=== PATIENT | male | born 1955 | race Caucasian/White ===

== ENCOUNTER 2019-09-05 08:24 | Outpatient (RCR) | payer OTHER, SELFPAY | END 2019-12-04 23:59 | disposition home or self-care (01) | LOC: CHSAUDIO 08:24 | PROVIDERS: PCP Internal Medicine; Visit Provider Audiologist | DX: H91.90 Unspecified hearing loss, unspecified ear (principal) | CPT/HCPCS: 92557; 92567 ==

== ENCOUNTER 2020-04-29 08:01 | Outpatient (CLI) | payer OTHER, SELFPAY ==
[2020-04-29 08:11] LABS: Basophils Absolute Auto 0.05 K/mm3 (0.00-0.10); Basophils Percent Auto 0.6 % (0.0-1.0); Eosinophils Absolute Auto 0.19 K/mm3 (0.02-0.50); Eosinophils Percent Auto 2.4 % (1.0-6.0); Hemoglobin 14.7 g/dL (12.4-15.3); Immature Granulocyte Absolute 0.01 K/mm3 (0.00-0.00); Immature Granulocyte Percent A 0.1 % (0.0-0.0); Lymphocytes Absolute Auto 2.66 K/mm3 (1.10-4.50); Lymphocytes Percent Auto 33.3 % (18.0-42.0); Mean Platelet Volume 8.9 fl (8.7-11.0); Monocytes Absolute Auto 0.92 K/mm3 (0.10-0.90); Monocytes Percent Auto 11.5 % (2.0-11.0); Neutrophils Absolute Auto 4.2 K/mm3 (1.7-7.2); Neutrophils Percent Auto 52.1 % (50.0-70.0); Platelet Count Result 301 K/mm3 (150-420); Red Blood Count 4.74 M/mm3 (4.70-6.10); Red Cell Distribution Width 12.8 % (11.6-14.4)
[2020-04-29 09:04] LABS: Alanine Aminotransferase 41 U/L (16-63); Albumin Level 4.1 g/dL (3.4-5.0); Alkaline Phosphatase 41 U/L (46-116); Anion Gap 7 mmol/L (8-16); Aspartate Amino Transferase 26 U/L (15-37); Bilirubin,Total 0.9 mg/dL (0.00-1.00); Blood Urea Nitrogen 14 mg/dL (7-18); Calcium 8.9 mg/dL (8.5-10.1); Carbon Dioxide 28 mmol/L (21-32); Chloride 104 mmol/L (98-108); Cholesterol 197 mg/dL (0-200); Estimated Glomerular Filt Rate > 60; Glucose 101 mg/dL (70-99); HDL Direct 67 mg/dL (40-60); LDL Cholesterol Calculated 116 mg/dL (<130); Osmolality Calculated 288 mOsm/kg (285-295); Potassium 4.1 mmol/L (3.5-5.1); Prostate Specific Antigen 1.5 ng/mL (< OR = 4.0); Sodium 139 mmol/L (136-145); Thyroid Stimulating Hormone 1.58 uIU/mL (0.36-3.74); Total Protein 6.9 g/dL (6.4-8.2); Triglycerides 70 mg/dL (0-150)
[2020-04-29 12:53] LABS: Appearance Urine Clear (Clear); Bilirubin Urine Negative (Negative); Color Urine Yellow (Yellow); Glucose Urine UA Negative (Negative); Ketones Urine Negative (Negative); Leukocyte Esterase Ur Negative (Negative); Nitrate Urine Negative (Negative); Protein Urine Negative (Negative); Specific Grav Ur <= 1.005 (1.010-1.020); Urobilinogen Urine 0.2 mg/dL (0.2-1.0)
[2020-04-29 12:58] LABS: Add Urine Microscopic? YES; Bacteria Urine None seen /hpf; Blood Urine Trace (Negative); RBC Urine 0-2 /hpf (0-2); WBC Urine 0-3 /hpf (0-3)
== END 2020-04-29 08:02 | disposition home or self-care (01) ==
LOC: CHSLAB 08:03
PROVIDERS: PCP Internal Medicine; Visit Provider Internal Medicine
DX: Z00.00 Encounter for general adult medical examination without abnormal findings (principal); Z12.5 Encounter for screening for malignant neoplasm of prostate
CPT/HCPCS: 36415; 80053; 80061; 81001; 84153; 84443; 85025; G0103

== ENCOUNTER 2020-09-10 07:11 | Outpatient (CLI) | payer OTHER, SELFPAY ==
--- NOTE | ~2020-09-10 | CT_ITS ---
EXAMINATION: CT abdomen pelvis wo/w con DATE: 09/10/2020 08:28 INDICATION: Microhematuria one week ago. Slight right lower quadrant stinging when bending over. Hist ory of lung cancer. TECHNIQUE: Computed tomography (CT) of the abdomen and pelvis was performed without and subsequently with 130 cc Omnipaque 350 intravenous contrast. Automated exposure control and iterative reconstructi on technique were employed. Exam dose: 2309.52 mGy-cm total exam DLP. COMPARISON: 07/20/2019 CT abdomen pelvis FINDINGS: Mild emphysematous changes are noted. Occasional peripheral small pulmonary nodular densiti es are noted, stable since 07/20/2019. There is stable mild discoid scarring in the lower lung zones. Normal heart size. Coronary artery calcification. No pericardial or pleural effusion. Small sliding hiatal hernia. No hepatic, splenic, pancreatic or adrenal space-occupying mass lesion. The gallbladder is present. N o bile duct or pancreatic duct dilatation. There are multiple pole bilateral scattered renal cysts, measuring up to 12 mm maximal dimension. Aga in noted is prominent focal calcification along the lateral cortex of the mid right kidney measuring up to 9 x 15 mm. No interval suspicious renal mass lesion is noted compared to 07/20/2019. No ureteral calculus or hydroureteronephrosis. There is prostate enlargement and moderate thickening of the urinary bladder wall. There are couple c alcifications along the anterior wall of the urinary bladder. Normal caliber of the abdominal aorta. No intraperitoneal or retroperitoneal or pelvic mass lesion or adenopathy or ascites. Normal appendix. Diverticulosis of the colon; no CT evidence of diverticulitis. No bowel obstruction, bowel wall thick ening, pneumatosis or intraperitoneal free air is detected. Fat-containing right inguinal hernia. Degenerative changes of the thoracic and lumbar spine. These include degenerative change at the apoph yseal joints with grade 1 anterolisthesis at L4-5 and prominent degenerative disc disease and mild re trolisthesis at L5-S1. IMPRESSION: Emphysema Small sliding hiatal hernia Bilateral renal cysts Chronic prominent focal calcification along the lateral mid right renal cortex Prostate enlargement and moderate thickening of the urinary bladder wall Diverticulosis of the colon Reviewed, dictated and finalized at [facility]. Reviewed, dictated and finalized at [facility]. 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
[2020-09-10 07:31] LABS: Estimated Glomerular Filt Rate > 60
== END 2020-09-10 07:12 | disposition home or self-care (01) ==
PROVIDERS: PCP Internal Medicine; Visit Provider Urology
DX: R31.29 Other microscopic hematuria (principal)
CPT/HCPCS: 74178; 87086; 87088; 88112; Q9967

== ENCOUNTER 2020-09-24 08:14 | Outpatient (CLI) | payer OTHER, SELFPAY | END 2020-09-24 08:15 | disposition home or self-care (01) | PROVIDERS: PCP Internal Medicine; Visit Provider Audiologist | DX: H91.90 Unspecified hearing loss, unspecified ear (principal) | CPT/HCPCS: 92557; 92567 ==

== ENCOUNTER 2020-10-15 08:00 | Outpatient (RCR) | payer OTHER, SELFPAY | END 2020-12-23 23:59 | disposition home or self-care (01) | LOC: CHSAUDIO 08:00 | PROVIDERS: PCP Internal Medicine; Visit Provider Audiologist | DX: H91.90 Unspecified hearing loss, unspecified ear (principal) | CPT/HCPCS: V5160; V5260 ==

== ENCOUNTER 2021-05-02 09:38 | Outpatient (CLI) | payer MEDICARE, SELFPAY ==
[2021-05-02 09:50] LABS: Basophils Absolute Auto 0.04 K/mm3 (0.00-0.10); Basophils Percent Auto 0.4 % (0.0-1.0); Eosinophils Absolute Auto 0.32 K/mm3 (0.02-0.50); Eosinophils Percent Auto 3.4 % (1.0-6.0); Hematocrit 47.2 % (37.0-46.0); Hemoglobin 15.2 g/dL (12.4-15.3); Immature Granulocyte Absolute 0.03 K/mm3 (0.00-0.00); Immature Granulocyte Percent A 0.3 % (0.0-0.0); Lymphocytes Absolute Auto 2.27 K/mm3 (1.10-4.50); Lymphocytes Percent Auto 23.9 % (18.0-42.0); Mean Corpuscular HGB Conc 32.2 g/dL (32.0-36.0); Mean Corpuscular Hemoglobin 31.2 pg (27.0-31.0); Mean Corpuscular Volume 96.9 fL (78.0-102.0); Mean Platelet Volume 8.9 fl (8.7-11.0); Monocytes Absolute Auto 1.26 K/mm3 (0.10-0.90); Monocytes Percent Auto 13.3 % (2.0-11.0); Neutrophils Absolute Auto 5.6 K/mm3 (1.7-7.2); Neutrophils Percent Auto 58.7 % (50.0-70.0); Platelet Count Result 299 K/mm3 (150-420); Red Blood Count 4.87 M/mm3 (4.70-6.10); White Blood Count 9.5 K/mm3 (4.8-10.8)
[2021-05-02 10:10] LABS: Add Urine Microscopic? YES; Appearance Urine Clear (Clear); Bilirubin Urine Negative (Negative); Blood Urine 1+ (Negative); Color Urine Light Yellow (Yellow); Glucose Urine UA Negative (Negative); Ketones Urine Negative (Negative); Leukocyte Esterase Ur Negative (Negative); Nitrate Urine Negative (Negative); Protein Urine Negative (Negative); Specific Grav Ur 1.015 (1.010-1.020)
[2021-05-02 10:14] LABS: WBC Urine 0-3 /hpf (0-3)
[2021-05-02 10:15] LABS: Bacteria Urine Trace /hpf; Mucus Urine Few /lpf; Squamous Epithelial Cell Urine None seen /hpf (Few)
[2021-05-02 11:27] LABS: Alanine Aminotransferase 32 U/L (16-63); Albumin Level 3.9 g/dL (3.4-5.0); Alkaline Phosphatase 50 U/L (46-116); Anion Gap 8 mmol/L (8-16); Aspartate Amino Transferase 14 U/L (15-37); Bilirubin,Total 0.7 mg/dL (0.00-1.00); Blood Urea Nitrogen 13 mg/dL (7-18); Calcium 9.2 mg/dL (8.5-10.1); Carbon Dioxide 32 mmol/L (21-32); Chloride 103 mmol/L (98-108); Cholesterol 202 mg/dL (0-200); Estimated Glomerular Filt Rate > 60; Glucose 92 mg/dL (70-99); HDL Direct 70 mg/dL (40-60); LDL Cholesterol Calculated 117 mg/dL (<130); Osmolality Calculated 296 mOsm/kg (285-295); Potassium 4.4 mmol/L (3.5-5.1); Prostate Specific Antigen 1.3 ng/mL (< OR = 4.0); Sodium 143 mmol/L (136-145); Thyroid Stimulating Hormone 1.32 uIU/mL (0.36-3.74); Total Protein 6.8 g/dL (6.4-8.2); Triglycerides 75 mg/dL (0-150)
== END 2021-05-02 09:39 | disposition home or self-care (01) ==
LOC: CHSLAB 09:40
PROVIDERS: PCP Internal Medicine; Visit Provider Internal Medicine
DX: E78.5 Hyperlipidemia, unspecified (principal); I10 Essential (primary) hypertension; Z12.5 Encounter for screening for malignant neoplasm of prostate; Z00.00 Encounter for general adult medical examination without abnormal findings
CPT/HCPCS: 36415; 80053; 80061; 81001; 84153; 84443; 85025; G0103

== ENCOUNTER 2021-05-08 11:23 | Outpatient (CLI) | payer MEDICARE, SELFPAY ==
--- NOTE | 2021-05-08 11:30 | ECG_ITS ---
Measurements Intervals [place] Rate: 73 P: 64 DC: 158 QRS: 6 QRSD: 118 T: 24 QT: 392 QTc: 435 Interpretive Statements SINUS RHYTHM INTRAVENTRICULAR CONDUCTION DELAY DELAYED PRECORDIAL R/S TRANSITION BASELINE ARTIFACT- II, III, AVF BORDERLINE ECG Electronically Signed On 05-08-2021 12:07:05 CDT by Niraj Pablo D.O.
== END 2021-05-08 11:24 | disposition home or self-care (01) ==
PROVIDERS: PCP Internal Medicine; Visit Provider Surgery
DX: Z01.818 Encounter for other preprocedural examination (principal); K40.90 Unilateral inguinal hernia, without obstruction or gangrene, not specified as recurrent; I10 Essential (primary) hypertension
CPT/HCPCS: 36415; 86850; 86900; 86901; 93005

== ENCOUNTER 2021-05-13 02:45 | Day surgery (SDC) | payer MEDICARE, SELFPAY ==
[2021-05-01 11:35] VITALS: BMI 27.5
--- NOTE | 2021-05-12 14:09 | WPDANESEPPF ---
Anes - Initial Pre Proc Eval Procedure: Operation Date: 05/13/21 10:00 Proposed Procedures p Laparoscopic Right Inguinal Hernia Repair with Mesh Davinci Assisted - Yeison Francis DO Date/Time: 05/12/21 14:09 Surgeon: Yeison Francis DO Pre Op Diagnosis: right inguinal hernia Patient Data Age: 66 Gender: M Height: 1.91 m Weight: 99.8 kg Allergies Allergy/AdvReac Type Severity Reaction Status Date / Time No Known Allergies Allergy Verified 05/01/21 11:18 Home Medications Medication Instructions Recorded Confirmed Type aspirin 81 mg PO DAILY 07/20/19 05/01/21 History cholecalciferol (vitamin D3) 2,000 unit PO DAILY 07/20/19 05/01/21 History [Vitamin D3] duloxetine [Cymbalta] 20 mg PO QAM 07/20/19 05/01/21 History finasteride 5 mg PO DAILY 07/20/19 05/01/21 History fluticasone propion-salmeterol 1 puff INHALATION BID 07/20/19 05/01/21 History [Advair HFA] fluticasone propionate [Flonase 2 spray INTRANASAL PRN PRN 07/20/19 05/01/21 History Allergy Relief] ipratropium-albuterol 3 ml INHALATION PRN PRN 07/20/19 05/01/21 History pravastatin 10 mg PO QPM 07/20/19 05/01/21 History spironolactone 25 mg PO DAILY 07/20/19 05/01/21 History trazodone 75 mg PO HS 07/20/19 05/01/21 History albuterol sulfate 2 puff INHALATION PRN PRN 05/01/21 05/01/21 History felodipine [Plendil] 10 mg PO HS 05/01/21 05/01/21 History pantoprazole 40 mg PO QPM 05/01/21 05/01/21 History docusate sodium [Stool Softener] 100 mg PO DAILY 05/04/21 05/04/21 History famotidine [Pepcid] 40 mg PO DAILY 05/04/21 05/04/21 History montelukast 10 mg PO DAILY 05/04/21 05/04/21 History Patient hx anesthesia problems: none Family hx anesthesia problems: none Results Review: All pre-operative results and documents have been reviewed as part of the pre-operative evaluation. [facility] Past Medical History Medical History Asthma BPH (benign prostatic hyperplasia) Depression GERD (gastroesophageal reflux disease) High cholesterol HTN (hypertension) Hx of malignant neoplasm of lung Surgical History Surgical History History of lobectomy of lung Left lower 2007 Family History Family History Father Brain cancer Mother Breast cancer Uterine cancer Cerebrovascular accident Sibling Parkinson disease Social History Social History Smoking packs per day: 2 Smoking cigarettes per day: 40.0 Years smoked: 18 Smoking pack-years: 36.00 Smoking status: Former smoker Tobacco type: cigarettes Smoking end date: 03/08/93 Alcohol intake: current Substance use: never Living arrangements: other Gender identity (if verbalized by the patient): Male Sexual Orientation (if Verbalized by the Patient): Straight or Heterosexual Spiritual care concerns: No Anes - Eval Final PreProcedure Day of Procedure 05/12/21 14:09 Patient weight: overweight Heart: regular rate and rhythm Lungs: clear to auscultation and normal air movement Airway: Mallampati scale class II Neurological: alert and oriented Last oral intake: >/= 8 hours ASA classification: III Emergent: no Anesthetic plan: proceed Anesthesia type and monitoring: general ETT and standard monitoring Results Review: All pre-operative results and documents have been reviewed as part of the pre-operative evaluation. Informed Consent: The patient's anesthetic plan and its attendant risks and benefits were discussed with the patient/family/POA. Questions were solicited and answers provided to the satisfaction of the patient/family/POA.
[2021-05-13] VITALS (10 sets, daily range): BP systolic 127–163; BP diastolic 79–95; PULSE 53–70; RESP 11–16; TEMP 36.1–37.1; O2SAT 96–100
[2021-05-13] MEDS: ACETAMINOPHEN 500 MG TABLET 1000 MG PO (08:32)
[2021-05-13] MEDS: KETOROLAC 15 MG/ML VIAL (*BKC) IV PUSH (08:32)
[2021-05-13] MEDS: LACTATED RINGERS 1,000 ML 30 ML IV CONT ×2 (08:37→10:45)
--- NOTE | 2021-05-13 09:03 | WPDHPUPDATE1 ---
History and Physical Update Update Date/Time: 05/13/21 09:03 History and Physical has been reviewed, including an updated exam of the patient. There are NO changes in the patient's condition. Risks, benefits, and alternatives have been discussed and questions answered. Patient agrees to proceed with procedure.
[2021-05-13] MEDS: ceFAZolin 2 GM/D5W 50 ML 2 GM/50 ML BAG IVPB (09:18)
--- NOTE | 2021-05-13 10:35 | W.PM.PROC2 ---
Procedure Note - Detailed Date of Procedure 05/13/21 Pre-op Diagnosis right inguinal hernia Post-op Diagnosis same (Indirect right inguinal hernia) Procedure Performed Laparoscopic right inguinal hernia repair with mesh, da Jesi assisted Surgeon Yeison Francis DO Anesthesia general and local (0.5% bupivacaine with epinephrine) Indications This is a 66-year-old man who presented with right groin pain with activity for the past month. He has a prior history of a CT which showed evidence of a fat containing right inguinal hernia. At the time this was not causing him many symptoms, but now he is noticing more frequent pain. A reducible right inguinal hernia was identified on physical exam. Discussions were made with the patient about treatment options and decision was made to proceed with laparoscopic right inguinal hernia repair with mesh, de Jesi assisted. Findings Laparoscopic right inguinal hernia repair was performed. The patient was found to have evidence of an indirect right inguinal hernia. A robotic transabdominal preperitoneal approach was utilized. A large right 3DMax mesh was placed within the preperitoneal pocket overlying the entire right myopectineal orifice. No specimens were obtained for pathology. There was no evidence of a left inguinal hernia on laparoscopic inspection. Description of Procedure Procedure as well as risks, benefits, and alternatives were discussed with the patient. Written consent was obtained and placed in chart prior to procedure. Patient was brought back to surgical suite. He was placed supine on operating table. Time-out was done to confirm patient and procedure. He was then intubated by Anesthesia Department. His abdomen was prepped and draped in sterile fashion using chlorhexidine prep. 0.5% bupivacaine with epinephrine was infiltrated at each location for incision. A 12 millimeter transverse incision was made just superior to the umbilicus using a 15 blade scalpel. Blunt dissection was carried out down to the linea alba. A vertical incision was made at the linea alba using a 15 blade scalpel. The peritoneum was then bluntly entered. A 12 millimeter trocar was inserted and carbon dioxide insufflation was used to create a pneumoperitoneum. A camera was inserted and the abdominal cavity was inspected. The patient was placed in slight Trendelenburg position. An 8 millimeter incision was made on the right lateral abdomen and an 8 millimeter trocar was inserted under direct visualization. Another 8 millimeter incision was made in the left lateral abdomen and an 8 millimeter trocar was inserted under direct visualization. The robotic arms were brought up to the patient's bedside and secured to the ports. The camera and instruments were inserted. I then moved over to the robotic console and took control of the camera and instruments. After careful inspection of the abdominal cavity, I began scoring the peritoneum along the right lower quadrant using scissors with electrocautery. The preperitoneal plane was entered and this was carefully dissected caudally along the inferior epigastric vessels. Careful dissection with scissors with electrocautery and blunt dissection was used to continue this dissection. I dissected far enough laterally to allow for mesh placement, and also dissected medially to identify the pubic arch and Garry's ligament. The hernia sac was identified and carefully dissected posteriorly. The cord contents were also identified and the peritoneum was carefully dissected far enough posteriorly to allow for mesh placement. Once an adequate pocket was created, I then placed the mesh within the preperitoneal pocket and carefully unfolded it. The mesh was centered on the hernia defect with adequate overlap circumferentially. The inferior edge of the mesh was inspected to ensure that it was far enough away from the peritoneal edge. The mesh appeared in proper position overlying the entire myop
--- NOTE | 2021-05-13 12:18 | SUR.PHASEII ---
1200 - family member contacted and updated.
== END 2021-05-13 13:50 | disposition home or self-care (01) ==
PROVIDERS: PCP Internal Medicine; Visit Provider Surgery
PROC: 8E0Y4CZ Robotic Assisted Procedure of Lower Extremity, Percutaneous Endoscopic Approach (ICD-10-PCS; CPT 49650; principal; 2021-05-13 10:00)
DX: K40.90 Unilateral inguinal hernia, without obstruction or gangrene, not specified as recurrent (principal); J45.909 Unspecified asthma, uncomplicated; I10 Essential (primary) hypertension; E78.00 Pure hypercholesterolemia, unspecified; K21.9 Gastro-esophageal reflux disease without esophagitis; N40.0 Benign prostatic hyperplasia without lower urinary tract symptoms; F32.9 Major depressive disorder, single episode, unspecified; Z85.118 Personal history of other malignant neoplasm of bronchus and lung; Z90.2 Acquired absence of lung [part of]; Z87.891 Personal history of nicotine dependence; Z79.51 Long term (current) use of inhaled steroids; Z79.82 Long term (current) use of aspirin
CPT/HCPCS: 49650; S2900; A9270; J0690; J1100; J1885; J2250; J2270; J2405; J2704; J7120

== ENCOUNTER 2021-06-08 09:56 | Outpatient (CLI) | payer MEDICARE, SELFPAY ==
[2021-06-08 11:46] LABS: SARS-CoV-2 RNA PCR Negative (Negative)
== END 2021-06-08 09:57 | disposition home or self-care (01) ==
LOC: CHSLAB 10:00
PROVIDERS: PCP Internal Medicine; Visit Provider Internal Medicine
DX: Z20.822 Contact with and (suspected) exposure to COVID-19 (principal)
CPT/HCPCS: C9803; U0003; U0005

== ENCOUNTER 2022-02-16 14:58 | Emergency (ER) | payer MEDICARE, SELFPAY ==
--- NOTE | ~2022-02-16 | CT_ITS ---
EXAMINATION: CT abdomen pelvis wo con DATE: 02/16/2022 16:11 INDICATION: Left-sided flank pain with nausea for 5 days. History of kidney stones. TECHNIQUE: Computed tomography (CT) of the abdomen and pelvis was performed without intravenous contr ast. The dose-length product was 883.10 mGy-cm. Automated exposure control and iterative reconstructi on technique were employed. COMPARISON: CT dated 09/10/2020. FINDINGS: No significant pleural or pericardial effusion. Heart size normal. Small hiatal hernia. Mil d atherosclerosis without aneurysm. No lymphadenopathy. Coarse peripheral calcification along the rig ht lateral margin of the kidney, likely of no clinical significance, most likely related to previous trauma or infection. Punctate nonobstructing bilateral renal stones. No ureteral stones or hydronephr osis. The liver, spleen, pancreas, adrenal glands are unremarkable. Gallbladder is present. Nonobstructive bowel gas pattern. Bladder is decompressed limiting evaluation for wall thickening. Prostate gland is enlarged. No abnormal pelvic masses or fluid collections. No free air or free fluid. Moderate lumbar spondylosis with grade 1 degenerative spondylolisthesis at L4-5. IMPRESSION: 1. Nonobstructing bilateral nephrolithiasis. Reviewed, dictated and finalized at [facility].
[2022-02-16 15:08] VITALS: BP 153/96; PULSE 83; RESP 18; TEMP 36.6; O2SAT 94
--- NOTE | 2022-02-16 15:57 | PC.NURSE ---
urine delivered to lab.
[2022-02-16 15:59] LABS: Add Urine Microscopic? YES; Appearance Urine Clear (Clear); Bilirubin Urine Negative (Negative); Blood Urine 3+ (Negative); Color Urine Yellow (Yellow); Glucose Urine UA Negative (Negative); Ketones Urine Negative (Negative); Leukocyte Esterase Ur Trace (Negative); Nitrate Urine Negative (Negative); Protein Urine Negative (Negative); Urobilinogen Urine 0.2 mg/dL (0.2-1.0)
[2022-02-16] MEDS: ACETAMINOPHEN 325 MG TABLET 650 MG PO (15:59)
[2022-02-16 16:02] LABS: Bacteria Urine 2+ /hpf; RBC Urine 21-50 /hpf (0-2); Squamous Epithelial Cell Urine Rare /hpf (Few); WBC Urine 0-3 /hpf (0-3)
--- NOTE | 2022-02-16 16:30 | ED.BACK ---
HPI - Back Pain/Injury General Chief Complaint: Back Pain/Injury Stated Complaint: lower back pain Time Seen by Provider: 02/16/22 15:02 Source: patient and RN notes reviewed Mode of arrival: ambulatory Limitations: no limitations History of Present Illness MD elicited complaint: back pain Pertinent past history: prior back pain Onset (ago): day(s) (2) Timing: constant and progressively worsening Severity: mild Pain scale (0-10): 5 Similar Symptoms Previously: Yes Quality: dull and aching Location: lumbar spine Radiation: none Exacerbating factors: movement Relieving factors: immobilization and medication Associated symptoms: denies other symptoms, increased urinary urgency and arthralgias Work related injury: No Related Data Home Medications Medication Instructions Recorded Confirmed aspirin 81 mg tablet,delayed 81 mg PO DAILY 07/20/19 05/28/21 release cholecalciferol (vitamin D3) 50 2,000 unit PO DAILY 07/20/19 05/28/21 mcg (2,000 unit) tablet (Vitamin D3) duloxetine 20 mg capsule,delayed 20 mg PO QAM 07/20/19 05/28/21 release (Cymbalta) finasteride 5 mg tablet 5 mg PO DAILY 07/20/19 05/28/21 fluticasone propionate 230 1 puff inhalation BID 07/20/19 05/28/21 mcg-salmeterol 21 mcg/actuation HFA inhaler (Advair HFA) fluticasone propionate 50 2 spray intranasal PRN PRN Allergy 07/20/19 05/28/21 mcg/actuation nasal Symptoms spray,suspension (Flonase Allergy Relief) ipratropium 0.5 mg-albuterol 3 mg 3 ml inhalation PRN PRN SOB 07/20/19 05/28/21 (2.5 mg base)/3 mL nebulization soln pravastatin 10 mg tablet 10 mg PO QPM 07/20/19 05/28/21 spironolactone 25 mg tablet 25 mg PO DAILY 07/20/19 05/28/21 trazodone 150 mg tablet 75 mg PO HS 07/20/19 05/28/21 albuterol sulfate 90 mcg/actuation 2 puff inhalation PRN PRN SOB 05/01/21 05/28/21 aerosol inhaler felodipine 10 mg tablet,extended 10 mg PO HS 05/01/21 05/28/21 release 24 hr pantoprazole 40 mg tablet,delayed 40 mg PO QPM 05/01/21 05/28/21 release docusate sodium 100 mg capsule 100 mg PO DAILY 05/04/21 05/28/21 (Stool Softener) famotidine 40 mg tablet (Pepcid) 40 mg PO DAILY 05/04/21 05/28/21 montelukast 10 mg tablet 10 mg PO DAILY 05/04/21 05/28/21 Allergies Allergy/AdvReac Type Severity Reaction Status Date / Time No Known Allergies Allergy Verified 02/16/22 15:14 Review of Systems Review of Systems: All systems reviewed & are unremarkable except as noted in HPI and below Constitutional: Constitutional: Reports no additional constitutional complaints Eyes: Eyes: Reports no additional eye complaints ENT: Reports system reviewed and no additional complaints, except as documented Cardiovascular: Cardiovascular: Reports no additional cardiovascular complaints Respiratory: Respiratory: Reports no additional respiratory complaints Gastrointestinal: Gastrointestinal: Reports no additional gastrointestinal complaints Genitourinary: Genitourinary: Reports dysuria Musculoskeletal: Musculoskeletal: Reports no additional musculoskeletal complaints and Reports back pain Integumentary/Breasts: Skin/Breast: Reports system reviewed and no additional complaints, except as docu Neurologic: Reports system reviewed and no additional complaints, except as documented Psychiatric: Psychiatric: Reports no additional psychiatric complaints Endocrine: Endocrine: Reports no additional endocrine complaints Hematologic/Lymphatic: Hematologic/Lymphatic: Reports no additional hematologic/lymphatic complaints Allergic/Immunologic: Allergic/Immunologic: Reports no additional allergic/immunologic complaints PMFSH Past Medical History Medical History Asthma Bilateral nephrolithiasis BPH (benign prostatic hyperplasia) Depression GERD (gastroesophageal reflux disease) High cholesterol HTN (hypertension) Hx of malignant neoplasm of lung Strain of lumbar region UTI (urinary tract infec
[2022-02-16] MEDS: cefTRIAXone 1 GM, LIDOCAINE HCL 1% LOCAL INJ 2.1 ML IM (16:59)
[2022-02-16 17:15] VITALS: BP 147/95; PULSE 76; RESP 16; TEMP 36.4; O2SAT 95
== END 2022-02-16 17:15 | disposition home or self-care (01) ==
PROVIDERS: Emergency Provider Emergency Medicine; PCP Internal Medicine
DX: S39.012A Strain of muscle, fascia and tendon of lower back, initial encounter (principal); N39.0 Urinary tract infection, site not specified; N20.0 Calculus of kidney; K21.9 Gastro-esophageal reflux disease without esophagitis; I10 Essential (primary) hypertension; Z85.118 Personal history of other malignant neoplasm of bronchus and lung; Z87.891 Personal history of nicotine dependence
CPT/HCPCS: 74176; 81001; 96372; 99284; A9270; J0696

== ENCOUNTER 2022-03-09 12:46 | Outpatient (CLI) | payer MEDICARE, SELFPAY ==
[2022-03-09 13:00] LABS: Appearance Urine Clear (Clear); Bilirubin Urine Negative (Negative); Color Urine Light Yellow (Yellow); Glucose Urine UA Negative (Negative); Ketones Urine Negative (Negative); Leukocyte Esterase Ur Negative LEU/UL (Negative); Nitrate Urine Negative (Negative); Protein Urine Negative (Negative); Urobilinogen Urine 0.2 mg/dL (0.2-1.0); pH Urine 5.5 (5.0-8.0)
[2022-03-09 13:07] LABS: Add Urine Microscopic? YES; Blood Urine Trace-Intact (Negative); RBC Urine 0-2 /hpf (0-2); WBC Urine None seen /hpf (0-3)
[2022-03-09 13:08] LABS: Bacteria Urine None seen /hpf
== END 2022-03-09 12:47 | disposition home or self-care (01) ==
LOC: CHSLAB 12:48
PROVIDERS: PCP Internal Medicine; Visit Provider Internal Medicine
DX: R31.9 Hematuria, unspecified (principal)
CPT/HCPCS: 81001; 88112; 88175; G0145

== ENCOUNTER 2022-07-28 11:21 | Emergency (ER) | payer MEDICARE, SELFPAY ==
--- NOTE | ~2022-07-28 | XR_ITS ---
XR chest 1V portable DATE: 07/28/2022 13:35 INDICATION: Chest congestion, chest discomfort TECHNIQUE: 2 portable upright AP views COMPARISON: 12/05/2018 2 view chest FINDINGS: Normal heart size. Minimal aortic tortuosity. No hilar or mediastinal enlargement. Sutures overlie the right mid and lower lung. The lungs appear mildly hyperinflated but clear of infiltrate or consolidation. Mild chronic discoid density, left lower lobe, present on 12/05/2018. IMPRESSION: Postoperative change of the right lung No active cardiopulmonary disease or significant change since 12/05/2018 Reviewed, dictated and finalized at [facility]. [employer] MECH[employer]IC
[2022-07-28 11:22] VITALS: BP 161/93; PULSE 95; RESP 18; TEMP 36.7; O2SAT 98
--- NOTE | 2022-07-28 12:45 | ECG_ITS ---
Measurements Intervals [place] Rate: 74 P: 59 [place]: 168 QRS: 56 QRSD: 112 T: 33 QT: 400 QTc: 446 Interpretive Statements SINUS RHYTHM MODERATE INTRAVENTRICULAR CONDUCTION DELAY [110+ ms QRS DURATION] ABNORMAL ECG COMPARED TO ECG 05/08/2021 11:41:34 NO SIGNIFICANT CHANGES Electronically Signed On 07-29-2022 7:17:47 BICYCLE REPAIRER by Ubaldo Pope M.D.
--- NOTE | 2022-07-28 13:05 | ED.GENADULT ---
HPI - General Adult General Chief complaint: Upper Respiratory Infection Stated complaint: SICK History of Present Illness HPI narrative: The patient is a 67-year-old male with history of left lower lobe lung cancer, status post left lower lobectomy followed by chemotherapy. Comorbidities also include depression, BPH, asthma for which he uses a peak flow meter, GERD, hyperlipidemia, and hypertension. He is vaccinated against COVID-19 2 of 2 doses, +2 boosters. He did contract COVID 19 earlier this year. He does swim 3 times weekly. For the last 1 month, the patient has had sinus drainage along with rhinorrhea and nasal congestion. He has been using Zyrtec and Flonase with improvement. He does use a peak flow meter and normally the reading is approximately 600 which has decreased to 475 yesterday evening. Over the last 24 hours, the patient has noted a temperature of 99.3?, chest tightness, sore throat, and left earache. No significant cough. Does have chest congestion but no nausea vomiting or abdominal pain. No chills or diaphoresis. No sick contacts. Related Data Home Medications Medication Instructions Recorded Confirmed aspirin 81 mg tablet,delayed 81 mg PO DAILY 07/20/19 07/28/22 release cholecalciferol (vitamin D3) 50 2,000 unit PO DAILY 07/20/19 07/28/22 mcg (2,000 unit) tablet (Vitamin D3) duloxetine 20 mg capsule,delayed 20 mg PO QAM 07/20/19 07/28/22 release (Cymbalta) finasteride 5 mg tablet 5 mg PO DAILY 07/20/19 07/28/22 fluticasone propionate 50 2 spray intranasal PRN PRN Allergy 07/20/19 07/28/22 mcg/actuation nasal Symptoms spray,suspension (Flonase Allergy Relief) ipratropium 0.5 mg-albuterol 3 mg 3 ml inhalation PRN PRN SOB 07/20/19 07/28/22 (2.5 mg base)/3 mL nebulization soln pravastatin 10 mg tablet 10 mg PO QPM 07/20/19 07/28/22 spironolactone 25 mg tablet 25 mg PO DAILY 07/20/19 07/28/22 trazodone 150 mg tablet 75 mg PO HS 07/20/19 07/28/22 albuterol sulfate 90 mcg/actuation 2 puff inhalation PRN PRN SOB 05/01/21 07/28/22 aerosol inhaler felodipine 10 mg tablet,extended 10 mg PO HS 05/01/21 07/28/22 release 24 hr pantoprazole 40 mg tablet,delayed 40 mg PO QPM 05/01/21 07/28/22 release docusate sodium 100 mg capsule 100 mg PO DAILY 05/04/21 07/28/22 (Stool Softener) famotidine 40 mg tablet (Pepcid) 40 mg PO DAILY 05/04/21 07/28/22 montelukast 10 mg tablet 10 mg PO DAILY 05/04/21 07/28/22 Allergies Allergy/AdvReac Type Severity Reaction Status Date / Time No Known Allergies Allergy Verified 07/28/22 11:35 Review of Systems Review of Systems: All systems reviewed & are unremarkable except as noted in HPI and below Constitutional: Constitutional: Reports no additional constitutional complaints, Denies anorexia, Reports body ache(s), Denies chills, Denies excessive sweating, Reports fatigue, Reports fever(s), Denies frequent falls, Denies headache(s), Reports malaise and Denies poor appetite Eyes: Eyes: Reports no additional eye complaints, Denies blurry vision, Denies change in vision, Denies irritation, Denies itchy eyes and Denies photophobia ENT: Reports system reviewed and no additional complaints, except as documented, Reports Normal hearing present, Denies change in voice, Denies dysphagia, Denies vertigo, Denies dizziness, Denies ear discharge, Denies headache(s), Denies hearing loss, Denies hoarseness, Reports nasal congestion, Denies neck pain, Reports sinus pressure, Reports sore throat and Denies throat swelling Cardiovascular: Cardiovascular: Reports no additional cardiovascular complaints, Denies chest pain, Denies syncope (mild chest tightness and congestion), Denies rapid heart rate, Denies irregular heart rhythm, Denies leg edema, Denies dyspnea and Denies slow heart rate Respiratory: Respiratory: Reports no additional respiratory complaints, Denies cough, Denies dyspnea, Denies stridor and Denies wheezing Gastrointestinal: Gastrointestinal: R
[2022-07-28 13:08] LABS: Basophils Absolute Auto 0.08 K/mm3 (0.00-0.10); Basophils Percent Auto 0.8 % (0.0-1.0); Eosinophils Absolute Auto 0.08 K/mm3 (0.02-0.50); Eosinophils Percent Auto 0.8 % (1.0-6.0); Hematocrit 43.2 % (37.0-46.0); Hemoglobin 14.1 g/dL (12.4-15.3); Immature Granulocyte Absolute 0.02 K/mm3 (0.00-0.00); Immature Granulocyte Percent A 0.2 % (0.0-0.0); Lymphocytes Absolute Auto 1.73 K/mm3 (1.10-4.50); Lymphocytes Percent Auto 16.7 % (18.0-42.0); Mean Corpuscular HGB Conc 32.6 g/dL (32.0-36.0); Mean Corpuscular Hemoglobin 31.2 pg (27.0-31.0); Mean Corpuscular Volume 95.6 fL (78.0-102.0); Mean Platelet Volume 9.3 fl (8.7-11.0); Monocytes Absolute Auto 1.43 K/mm3 (0.10-0.90); Monocytes Percent Auto 13.8 % (2.0-11.0); Neutrophils Percent Auto 67.7 % (50.0-70.0); Platelet Count Result 301 K/mm3 (150-420); Red Blood Count 4.52 M/mm3 (4.70-6.10); Red Cell Distribution Width 13.2 % (11.6-14.4); White Blood Count 10.4 K/mm3 (4.8-10.8)
[2022-07-28 13:22] LABS: D Dimer 0.38 mg/L (0.19-0.50)
[2022-07-28 13:27] VITALS: BP 135/83; PULSE 85; RESP 16; O2SAT 98
[2022-07-28 13:27] LABS: Alanine Aminotransferase 30 U/L (16-63); Albumin Level 3.7 g/dL (3.4-5.0); Alkaline Phosphatase 47 U/L (46-116); Anion Gap 9 mmol/L (8-16); Aspartate Amino Transferase 20 U/L (15-37); Bilirubin,Total 0.7 mg/dL (0.00-1.00); Blood Urea Nitrogen 12 mg/dL (7-18); Calcium 8.8 mg/dL (8.5-10.1); Carbon Dioxide 27 mmol/L (21-32); Chloride 103 mmol/L (98-108); Estimated CRCL calculation 76 ml/min; Estimated Glomerular Filt Rate > 60; Glucose 99 mg/dL (70-99); Osmolality Calculated 287 mOsm/kg (285-295); Potassium 3.9 mmol/L (3.5-5.1); Sodium 139 mmol/L (136-145); Total Protein 6.9 g/dL (6.4-8.2); Troponin I 6.2 ng/L (0.00-60.4)
[2022-07-28 13:28] LABS: CRP < 0.5 mg/dL (0.0-0.9)
--- NOTE | 2022-07-28 13:28 | PC.NURSE ---
PT IS GETTING PORTABLE CXR AT THIS TIME, AWAITING LAB RESULTS. NAD NOTED. WILL CONTINUE TO MONITOR.
[2022-07-28 13:37] LABS: Strep Group A RT-PCR NOT DETECTED (Negative)
[2022-07-28 13:45] LABS: Influenza A QL RT-PCR Negative (Negative); Influenza B QL RT-PCR Negative (Negative); SARS-CoV-2 RNA PCR Negative (Negative)
[2022-07-28 13:47] VITALS: BP 127/94; PULSE 80; RESP 18; O2SAT 97
[2022-07-28 13:51] LABS: RSV RNA, RT-PCR Positive (Negative)
[2022-07-28 14:14] LABS: Erythrocyte Sedimentation Rate 3 mm/hr (0-20)
== END 2022-07-28 14:15 | disposition home or self-care (01) ==
PROVIDERS: Emergency Provider Emergency Medicine; PCP Internal Medicine
DX: J06.9 Acute upper respiratory infection, unspecified (principal); B97.4 Respiratory syncytial virus as the cause of diseases classified elsewhere; I10 Essential (primary) hypertension; Z79.82 Long term (current) use of aspirin; Z85.118 Personal history of other malignant neoplasm of bronchus and lung; Z87.891 Personal history of nicotine dependence; Z20.822 Contact with and (suspected) exposure to COVID-19
CPT/HCPCS: 36415; 71045; 80053; 83605; 84484; 85025; 85380; 85652; 86140; 87637; 87651; 93005; 99284

== ENCOUNTER 2022-07-30 10:51 | Emergency (ER) | payer MEDICARE, SELFPAY ==
--- NOTE | 2022-07-30 10:59 | ED.URI ---
HPI - URI/Sore Throat General Chief Complaint: Upper Respiratory Infection Stated Complaint: cough, fever, fatigue Time Seen by Provider: 07/30/22 10:58 Source: patient and RN notes reviewed Mode of arrival: ambulatory Limitations: no limitations History of Present Illness HPI Narrative: Patient was here 2 days ago and was diagnosed with RSV. He was discharged home after chest x-ray showed no abnormalities. He went to see his primary care physician yesterday was started on cefdinir and steroids. He is here today because he is worried about pneumonia. patient has a history of COPD and lung cancer. He has had a lower lobectomy. He says when he gets this he tends to get really sick very fast. His primary care doctor will give him a gm of Rocephin and then start him on antibiotics. He says his fever has gotten higher today when he is coughing up some yellow phlegm. He has only had 2 doses of his antibiotics so far and he did not start on his prednisone pills. MD elicited complaint: fever and cough Onset (ago): day(s) (2) Consistency: constant Severity: moderate Description of mucous: yellow Able to tolerate fluids by mouth: Yes Exacerbating factors: other ( Coughing) Relieving factors: nothing Context: sick contacts Associated symptoms: fever, chills, myalgias and shortness of breath Treatments prior to arrival: none Related Data Home Medications Medication Instructions Recorded Confirmed aspirin 81 mg tablet,delayed 81 mg PO DAILY 07/20/19 07/30/22 release cholecalciferol (vitamin D3) 50 2,000 unit PO DAILY 07/20/19 07/30/22 mcg (2,000 unit) tablet (Vitamin D3) duloxetine 20 mg capsule,delayed 20 mg PO QAM 07/20/19 07/30/22 release (Cymbalta) finasteride 5 mg tablet 5 mg PO DAILY 07/20/19 07/30/22 fluticasone propionate 50 2 spray intranasal PRN PRN Allergy 07/20/19 07/30/22 mcg/actuation nasal Symptoms spray,suspension (Flonase Allergy Relief) ipratropium 0.5 mg-albuterol 3 mg 3 ml inhalation PRN PRN SOB 07/20/19 07/30/22 (2.5 mg base)/3 mL nebulization soln pravastatin 10 mg tablet 10 mg PO QPM 07/20/19 07/30/22 spironolactone 25 mg tablet 25 mg PO DAILY 07/20/19 07/30/22 trazodone 150 mg tablet 75 mg PO HS 07/20/19 07/30/22 albuterol sulfate 90 mcg/actuation 2 puff inhalation PRN PRN SOB 05/01/21 07/30/22 aerosol inhaler felodipine 10 mg tablet,extended 10 mg PO HS 05/01/21 07/30/22 release 24 hr pantoprazole 40 mg tablet,delayed 40 mg PO QPM 05/01/21 07/30/22 release famotidine 40 mg tablet (Pepcid) 40 mg PO DAILY 05/04/21 07/30/22 montelukast 10 mg tablet 10 mg PO DAILY 05/04/21 07/30/22 Allergies Allergy/AdvReac Type Severity Reaction Status Date / Time No Known Allergies Allergy Verified 07/28/22 11:35 Review of Systems Review of Systems: All systems reviewed & are unremarkable except as noted in HPI and below Cardiovascular: Cardiovascular: Denies chest pain and Denies rapid heart rate Gastrointestinal: Gastrointestinal: Denies nausea and Denies vomiting [facility] Past Medical History Medical History Asthma Bilateral nephrolithiasis BPH (benign prostatic hyperplasia) Depression GERD (gastroesophageal reflux disease) High cholesterol HTN (hypertension) Hx of malignant neoplasm of lung Strain of lumbar region UTI (urinary tract infection) Surgical History Surgical History H/O hernia repair lap RIH repair w/ mesh, davinci assisted 05/13/21 History of lobectomy of lung Left lower 2006 Family History Family History Father Brain cancer Mother Breast cancer Uterine cancer Cerebrovascular accident Sibling Parkinson disease Social History Social History Smoking packs per day: 2 Smoking cigarettes per day: 40.0 Years smoked: 18 Smokin
[2022-07-30 11:04] VITALS: BP 164/80; PULSE 108; RESP 16; TEMP 37.3; O2SAT 96
[2022-07-30 11:06] VITALS: BP 164/80; PULSE 108; RESP 20; TEMP 37.3; O2SAT 95
[2022-07-30 11:12] VITALS: O2SAT 95
[2022-07-30] MEDS: cefTRIAXone 1 GM, LIDOCAINE HCL 1% LOCAL INJ 2.1 ML IM (11:25)
[2022-07-30 11:32] VITALS: BP 162/76; PULSE 101; RESP 16; TEMP 37.3; O2SAT 97
== END 2022-07-30 11:58 | disposition home or self-care (01) ==
PROVIDERS: Emergency Provider Emergency Medicine; PCP Internal Medicine
DX: J20.5 Acute bronchitis due to respiratory syncytial virus (principal); J44.0 Chronic obstructive pulmonary disease with (acute) lower respiratory infection; I10 Essential (primary) hypertension; Z85.118 Personal history of other malignant neoplasm of bronchus and lung; Z79.82 Long term (current) use of aspirin; Z87.891 Personal history of nicotine dependence
CPT/HCPCS: 96372; 99283; J0696

== ENCOUNTER 2022-10-27 17:35 | Outpatient (CLI) | payer MEDICARE, SELFPAY ==
[2022-10-27 18:23] LABS: Influenza A QL RT-PCR Negative (Negative); Influenza B QL RT-PCR Negative (Negative); SARS-CoV-2 RNA PCR Negative (Negative)
== END 2022-10-27 17:36 | disposition home or self-care (01) ==
LOC: CHSLAB 17:39
PROVIDERS: PCP Internal Medicine; Visit Provider Nurse Practitioner Family
DX: J06.9 Acute upper respiratory infection, unspecified (principal); Z20.822 Contact with and (suspected) exposure to COVID-19
CPT/HCPCS: 87636

== ENCOUNTER 2022-11-12 08:33 | Outpatient (CLI) | payer MEDICARE, SELFPAY ==
[2022-11-12 09:18] LABS: Cholesterol 192 mg/dL (0-200); HDL Direct 67 mg/dL (40-60); LDL Cholesterol Calculated 117 mg/dL (<130); Triglycerides 41 mg/dL (0-150)
== END 2022-11-12 08:34 | disposition home or self-care (01) ==
LOC: CHSLAB 08:35
PROVIDERS: PCP Internal Medicine; Visit Provider Internal Medicine
DX: E78.2 Mixed hyperlipidemia (principal)
CPT/HCPCS: 36415; 80061

== ENCOUNTER 2022-12-23 17:51 | Emergency (ER) | payer MEDICARE, SELFPAY ==
[2022-12-23 17:52] VITALS: BP 148/91; PULSE 67; RESP 18; TEMP 36.3; O2SAT 97
--- NOTE | 2022-12-23 18:24 | ED.BACK ---
HPI - Back Pain/Injury General Chief Complaint: Back Pain/Injury Stated Complaint: left back pain Time Seen by Provider: 12/23/22 18:08 Source: patient Mode of arrival: ambulatory Limitations: no limitations History of Present Illness HPI Narrative: This is a 67-year-old gentleman that presents with some left lower back pain and spasm, was seen by his primary care physician and started on prednisone was doing some yd work and reaggravated his left lower back causing pain spasm with our radiation down his left upper leg with no saddle paresthesias no fever chills no known injury. MD elicited complaint: back pain Pertinent past history: prior back pain Onset (ago): day(s) Timing: constant Severity: moderate Pain scale (0-10): 7 Similar Symptoms Previously: Yes Quality: sharp and spasming Location: lumbar spine Radiation: left upper leg Exacerbating factors: movement Relieving factors: immobilization Context: while lifting, turning/twisting and bending Associated symptoms: denies other symptoms Related Data Home Medications Medication Instructions Recorded Confirmed aspirin 81 mg tablet,delayed 81 mg PO DAILY 07/20/19 07/30/22 release cholecalciferol (vitamin D3) 50 2,000 unit PO DAILY 07/20/19 07/30/22 mcg (2,000 unit) tablet (Vitamin D3) duloxetine 20 mg capsule,delayed 20 mg PO QAM 07/20/19 07/30/22 release (Cymbalta) finasteride 5 mg tablet 5 mg PO DAILY 07/20/19 07/30/22 fluticasone propionate 50 2 spray intranasal PRN PRN Allergy 07/20/19 07/30/22 mcg/actuation nasal Symptoms spray,suspension (Flonase Allergy Relief) ipratropium 0.5 mg-albuterol 3 mg 3 ml inhalation PRN PRN SOB 07/20/19 07/30/22 (2.5 mg base)/3 mL nebulization soln pravastatin 10 mg tablet 10 mg PO QPM 07/20/19 07/30/22 spironolactone 25 mg tablet 25 mg PO DAILY 07/20/19 07/30/22 trazodone 150 mg tablet 75 mg PO HS 07/20/19 07/30/22 albuterol sulfate 90 mcg/actuation 2 puff inhalation PRN PRN SOB 05/01/21 07/30/22 aerosol inhaler felodipine 10 mg tablet,extended 10 mg PO HS 05/01/21 07/30/22 release 24 hr pantoprazole 40 mg tablet,delayed 40 mg PO QPM 05/01/21 07/30/22 release famotidine 40 mg tablet (Pepcid) 40 mg PO DAILY 05/04/21 07/30/22 montelukast 10 mg tablet 10 mg PO DAILY 05/04/21 07/30/22 Allergies Allergy/AdvReac Type Severity Reaction Status Date / Time No Known Allergies Allergy Verified 12/23/22 18:08 Review of Systems Review of Systems: All systems reviewed & are unremarkable except as noted in HPI and below PMFSH Past Medical History Medical History Asthma Bilateral nephrolithiasis BPH (benign prostatic hyperplasia) Depression GERD (gastroesophageal reflux disease) High cholesterol HTN (hypertension) Hx of malignant neoplasm of lung Strain of lumbar region UTI (urinary tract infection) Surgical History Surgical History H/O hernia repair lap RIH repair w/ mesh, davinci assisted 05/13/21 History of lobectomy of lung Left lower 2006 Family History Family History Father Brain cancer Mother Breast cancer Uterine cancer Cerebrovascular accident Sibling Parkinson disease Social History Social History Smoking packs per day: 2 Smoking cigarettes per day: 40.0 Years smoked: 19 Smoking pack-years: 38.00 Smoking status: Former smoker Tobacco type: cigarettes Smoking end date: 03/08/93 Alcohol intake: current Substance use: never Living arrangements: other Occupation/Education: occupation Gender identity (if verbalized by the patient): Male Sexual Orientation (if Verbalized by the Patient): Straight or Heterosexual Spiritual care concerns: No Exam Const: General: healthy appearing Nutritional Appearance: well n
[2022-12-23] MEDS: ORPHENADRINE CITRATE 30 MG/ML 2 ML VIAL 60 MG IM (18:31)
[2022-12-23] MEDS: KETOROLAC 30 MG/ML VIAL (*BKC) IM (18:32)
[2022-12-23 18:43] VITALS: BP 156/89; PULSE 57; RESP 20; TEMP 36.9; O2SAT 91
== END 2022-12-23 18:52 | disposition home or self-care (01) ==
PROVIDERS: Emergency Provider Emergency Medicine; PCP Internal Medicine
DX: S39.012A Strain of muscle, fascia and tendon of lower back, initial encounter (principal); M54.32 Sciatica, left side; I10 Essential (primary) hypertension; F41.9 Anxiety disorder, unspecified; J45.909 Unspecified asthma, uncomplicated; F17.210 Nicotine dependence, cigarettes, uncomplicated; X58.XXXA Exposure to other specified factors, initial encounter
CPT/HCPCS: 96372; 99284; J1885; J2360

== ENCOUNTER 2022-12-31 12:32 | Outpatient (CLI) | payer MEDICARE, SELFPAY ==
[2022-12-31 13:57] LABS: Prostate Specific Antigen 1.7 ng/mL (< OR = 4.0)
== END 2022-12-31 12:33 | disposition home or self-care (01) ==
LOC: CHSLAB 12:37
PROVIDERS: PCP Internal Medicine
DX: N40.0 Benign prostatic hyperplasia without lower urinary tract symptoms (principal)
CPT/HCPCS: 36415; 84153

== ENCOUNTER 2023-09-24 15:53 | Emergency (ER) | payer MEDICARE, SELFPAY ==
--- NOTE | ~2023-09-24 | CT_ITS ---
EXAMINATION: CT abdomen pelvis wo con DATE: 09/24/2023 16:31 INDICATION: right Flank groin pain w/ hematuria x2days, hx renal stones TECHNIQUE: Computed tomography (CT) of the abdomen and pelvis was performed without intravenous contr ast. Automated exposure control and iterative reconstruction technique were employed. The dose-length product was 316.93 mGy-cm. COMPARISON: 02/16/2022, 07/20/2019. FINDINGS: Lower thorax: Senescent changes. Stable granulomas. Minimal bibasilar scarring. Coronary artery calci fication. Mitral calcification. Liver: Normal. Biliary/Gallbladder: Nondistended gallbladder, no inflammatory change. No bile duct dilation. Pancreas: No mass or duct dilation. Spleen: Normal. Adrenals:No mass. Kidneys: No suspicious mass, obstructing stone, or hydronephrosis. Punctate nonobstructing bilateral calculi. Chronic ossification at the lateral margin of the right midpole. GI tract: No small or large bowel dilation. Normal appendix. Diverticulosis without diverticulitis. Mesentery/Peritoneum: No ascites, mass, or free air. Retroperitoneum: No mass. Pelvis: Urinary bladder is mostly empty, with mild wall thickening likely due to incomplete distentio n. No inflammatory stranding. Prostatomegaly. Soft Tissues: Soft tissues and body wall unremarkable. Bones: No acute osseous finding. IMPRESSION: No acute abdominopelvic process detected. Reviewed, dictated and finalized at location K. ENTER SUPERVISOR
[2023-09-24 15:58] VITALS: BP 148/88; PULSE 84; RESP 20; TEMP 36.6; O2SAT 97
[2023-09-24 16:35] LABS: Bilirubin Urine Negative (Negative); Blood Urine 3+ (Negative); Glucose Urine UA Negative (Negative); Ketones Urine Negative (Negative); Leukocyte Esterase Ur Negative LEU/UL (Negative); Nitrate Urine Negative (Negative); Protein Urine 2+ (Negative); Specific Grav Ur 1.025 (1.010-1.020); Urobilinogen Urine 0.2 mg/dL (0.2-1.0)
[2023-09-24 16:40] LABS: Add Urine Microscopic? YES; Appearance Urine Turbid (Clear); Color Urine Red (Yellow); RBC Urine >100 /hpf (0-2)
--- NOTE | 2023-09-24 16:54 | ED.MALEGU ---
HPI - Male Genitourinary General Chief complaint: Urogenital-Male Stated complaint: blood in urine Time Seen by Provider: 09/24/23 16:08 Source: patient Mode of arrival: ambulatory Limitations: no limitations History of Present Illness HPI Narrative: this is 68-year-old male that presents with hematuria and right flank discomfort pain in his right flank radiates to his right groin is minima did have a urine sample and his pain had improved after he gave urine sample. There is no fever chills no nausea vomiting no suprapubic tenderness no diarrhea or constipation. Onset (ago): hour(s) Duration: improved Related Data Home Medications Medication Instructions Recorded Confirmed aspirin 81 mg tablet,delayed 81 mg PO DAILY 07/20/19 07/30/22 release cholecalciferol (vitamin D3) 50 2,000 unit PO DAILY 07/20/19 07/30/22 mcg (2,000 unit) tablet (Vitamin D3) duloxetine 20 mg capsule,delayed 20 mg PO QAM 07/20/19 07/30/22 release (Cymbalta) finasteride 5 mg tablet 5 mg PO DAILY 07/20/19 07/30/22 fluticasone propionate 50 2 spray intranasal PRN PRN Allergy 07/20/19 07/30/22 mcg/actuation nasal Symptoms spray,suspension (Flonase Allergy Relief) ipratropium 0.5 mg-albuterol 3 mg 3 ml inhalation PRN PRN SOB 07/20/19 07/30/22 (2.5 mg base)/3 mL nebulization soln pravastatin 10 mg tablet 10 mg PO QPM 07/20/19 07/30/22 spironolactone 25 mg tablet 25 mg PO DAILY 07/20/19 07/30/22 trazodone 150 mg tablet 75 mg PO HS 07/20/19 07/30/22 albuterol sulfate 90 mcg/actuation 2 puff inhalation PRN PRN SOB 05/01/21 07/30/22 aerosol inhaler felodipine 10 mg tablet,extended 10 mg PO HS 05/01/21 07/30/22 release 24 hr pantoprazole 40 mg tablet,delayed 40 mg PO QPM 05/01/21 07/30/22 release famotidine 40 mg tablet (Pepcid) 40 mg PO DAILY 09/27/21 12/23/22 montelukast 10 mg tablet 10 mg PO DAILY 05/04/21 07/30/22 Allergies Allergy/AdvReac Type Severity Reaction Status Date / Time No Known Allergies Allergy Verified 09/24/23 16:41 Review of Systems Review of Systems: All systems reviewed & are unremarkable except as noted in HPI and below PMFSH Past Medical History Medical History Asthma Bilateral nephrolithiasis BPH (benign prostatic hyperplasia) Depression GERD (gastroesophageal reflux disease) High cholesterol HTN (hypertension) Hx of malignant neoplasm of lung Strain of lumbar region UTI (urinary tract infection) Surgical History Surgical History H/O hernia repair lap RIH repair w/ mesh, davinci assisted 05/13/21 History of lobectomy of lung Left lower 2006 Family History Family History Father Brain cancer Mother Breast cancer Uterine cancer Cerebrovascular accident Sibling Parkinson disease Social History Social History Smoking packs per day: 2 Smoking cigarettes per day: 40.0 Years smoked: 19 Smoking pack-years: 38.00 Smoking status: Former smoker Tobacco type: cigarettes Smoking end date: 03/08/93 Alcohol intake: current Substance use: never Living arrangements: other Occupation/Education: occupation Gender identity (if verbalized by the patient): Male Sexual Orientation (if Verbalized by the Patient): Straight or Heterosexual Spiritual care concerns: No Exam Const: General: healthy appearing and no acute distress Nutritional Appearance: well nourished Limitations: no limitations Neck: Neck: normal visual inspection Chest: Chest palpation & inspection: normal inspection of the chest Resp: Effort & Inspection: normal respiratory effort Auscultation: clear to auscultation bilaterally Cardio: Rhythm: regular rhythm GI: GI Palp: Yes Soft to palpation Auscultation: normal bowel sounds : General: Yes bladde
--- NOTE | 2023-09-24 16:56 | PC.NURSE ---
On 09/24/23, the student, Lydia Melchor, provided care and completed [facility] documentation on this patient. I have reviewed the student's documentation and agree with the findings.
[2023-09-24 17:04] VITALS: BP 125/82; PULSE 79; RESP 17; TEMP 36.9; O2SAT 96
== END 2023-09-24 17:04 | disposition home or self-care (01) ==
PROVIDERS: Emergency Provider Emergency Medicine; PCP Internal Medicine
DX: N20.0 Calculus of kidney (principal); R31.0 Gross hematuria; N39.0 Urinary tract infection, site not specified; I10 Essential (primary) hypertension; Z87.891 Personal history of nicotine dependence
CPT/HCPCS: 74176; 81001; 99284

== ENCOUNTER 2024-02-14 11:28 | Outpatient (CLI) | payer MEDICARE, SELFPAY ==
[2024-02-14 11:42] LABS: Hematocrit 44.9 % (37.0-46.0); Hemoglobin 14.7 g/dL (12.4-15.3); Mean Corpuscular HGB Conc 32.7 g/dL (32-36); Mean Corpuscular Hemoglobin 31.8 pg (27.0-31.0); Mean Corpuscular Volume 97.2 fL (78.0-102.0); Mean Platelet Volume 8.9 fl (8.7-11.0); Platelet Count Result 332 K/mm3 (150-420); Red Blood Count 4.62 M/mm3 (4.70-6.10); White Blood Count 8.8 K/mm3 (4.8-10.8)
[2024-02-14 12:43] LABS: Alanine Aminotransferase 25 U/L (16-63); Alkaline Phosphatase 42 U/L (46-116); Anion Gap 8 mmol/L (4-12); Aspartate Amino Transferase 14 U/L (15-37); Bilirubin,Total 0.8 mg/dL (0.00-1.00); Blood Urea Nitrogen 16 mg/dL (7-18); Calcium 9.2 mg/dL (8.5-10.1); Carbon Dioxide 30 mmol/L (21-32); Chloride 103 mmol/L (98-108); Cholesterol 191 mg/dL (0-200); Estimated Glomerular Filt Rate > 60; Glucose 80 mg/dL (70-99); HDL Direct 58 mg/dL (40-60); LDL Cholesterol Calculated 102 mg/dL (<130); Osmolality Calculated 292 mOsm/kg (285-295); Potassium 4.8 mmol/L (3.5-5.1); Sodium 141 mmol/L (136-145); Thyroid Stimulating Hormone 1.14 uIU/mL (0.36-3.74); Triglycerides 156 mg/dL (0-150)
== END 2024-02-14 11:29 | disposition home or self-care (01) ==
LOC: CHSLAB 11:30
PROVIDERS: PCP Internal Medicine; Visit Provider Internal Medicine
DX: I10 Essential (primary) hypertension (principal); E78.5 Hyperlipidemia, unspecified
CPT/HCPCS: 36415; 80053; 80061; 84443; 85027

== ENCOUNTER 2024-10-31 10:29 | Outpatient (CLI) | payer MEDICARE, SELFPAY ==
--- NOTE | ~2024-10-31 | XR_ITS ---
EXAMINATION: XR chest 2V 10/31/2024 11:02 INDICATION: Pneumonia and cough PROCEDURE: 2 view chest COMPARISON: Comparison to multiple prior studies sequentially, with oldest reviewed study dated 01/23. FINDINGS: The lungs are clear. The cardiomediastinal silhouette is within normal limits. There are no pleural effusions. There is no pneumothorax suspected. The lungs are hyperinflated which is cons istent with, but not diagnostic of chronic obstructive pulmonary disease. IMPRESSION: 1: NO ACUTE CARDIOPULMONARY DISEASE. Reviewed, dictated and finalized at location A.
[2024-10-31 10:55] LABS: Hematocrit 42.9 % (37.0-46.0); Hemoglobin 13.7 g/dL (12.4-15.3); Mean Corpuscular HGB Conc 31.9 g/dL (32-36); Mean Corpuscular Hemoglobin 30.6 pg (27.0-31.0); Mean Corpuscular Volume 95.8 fL (78.0-102.0); Mean Platelet Volume 8.8 fl (8.7-11.0); Platelet Count Result 369 K/mm3 (150-420); Red Blood Count 4.48 M/mm3 (4.70-6.10); Red Cell Distribution Width 13.4 % (11.6-14.4)
[2024-10-31 11:13] LABS: Add Urine Microscopic? YES; Appearance Urine Clear (Clear); Bilirubin Urine 1+ (Negative); Blood Urine 3+ (Negative); Color Urine Red (Yellow); Glucose Urine UA Negative (Negative); Ketones Urine Negative (Negative); Leukocyte Esterase Ur Trace LEU/UL (Negative); Nitrate Urine Negative (Negative); Protein Urine 3+ (Negative); Urobilinogen Urine 0.2 mg/dL (0.2-1.0); pH Urine 6.5 (5.0-8.0)
[2024-10-31 11:16] LABS: Alanine Aminotransferase 94 U/L (16-63); Albumin Level 3.5 g/dL (3.4-5.0); Alkaline Phosphatase 68 U/L (46-116); Anion Gap 9 mmol/L (4-12); Aspartate Amino Transferase 32 U/L (15-37); Bilirubin,Total 1.2 mg/dL (0.00-1.00); Blood Urea Nitrogen 18 mg/dL (7-18); CRP 2.5 mg/dL (0.0-0.9); Calcium 9.6 mg/dL (8.5-10.1); Carbon Dioxide 29 mmol/L (21-32); Chloride 100 mmol/L (98-108); Estimated Glomerular Filt Rate > 60; Glucose 102 mg/dL (70-99); Osmolality Calculated 287 mOsm/kg (285-295); Potassium 4.1 mmol/L (3.5-5.1); Sodium 138 mmol/L (136-145); Total Protein 6.8 g/dL (6.4-8.2)
[2024-10-31 11:19] LABS: Band Neutrophils Percent 0 % (0-6); Lymphocytes Percent Manual 7 % (18-44); Monocytes Percent Manual 7 % (3-9); Neutrophils Percent Manual 86 % (46-73); Platelet Estimate Adequate (Adequate); Total Cells Counted 100
[2024-10-31 11:21] LABS: Bacteria Urine Trace /hpf; Squamous Epithelial Cell Urine Rare /hpf (Few)
--- OUTSIDE RECORDS SUMMARY | 2024-10-31 11:55 | XMS_ITS | Clinical Summary ---
Author Organization [facility] Address [address] [place] [address] Care Team Providers Care Forest Botany Instructor Name Role Phone Nj Harrington MD Primary Care Provider [phone] Allergies No known active allergies Medications FELODIPINE ER OR Act uriel pantoprazole EC 20 MG tablet Take 20 mg by mouth daily. Active famotidine 10 MG tablet Take 10 mg by mouth 2 (two) times daily. Active Fluticasone-Salm eterol 232-14 MCG/ACT AEROSOL POWDER, BREATH ACTIVATED 08/29/2020 Active ADVAIR HFA 230-21 MCG/ACT inhaler 01/04/2020 Active Active Problems Problem Noted Date Diagnosed Date Microhematuria 09/09/2020 Overview (09/09/2020): Added automatically from request for surgery [id number] Social History Tobacco Use Types Packs/Day Years Used Date Smoking Tobacco: Former Cigarettes Q uit: 1992 Smokeless Tobacco: Never Alcohol Use Standard Drinks/Week Comments Never 0 (1 standard drink = 0.6 oz pur e alcohol) AUDIT-C Answer Date Recorded Q1: How often do you have a drink containing alc ohol? Never 09/09/2020 Average Number of Drinks Not on file 021 Frequency of Binge Drinking Not on file 09/2020 Sex and Gender Information Value Date Recorded Sex Assigned at Not on file Legal Sex Male 8:46 PM CDT Gender Identity Male 12/18/2021 11:42 AM CDT Sexual Orientation Not on file Last Filed Vital Signs Vital Sign Reading Time Taken Comments Blood Pressure 139/80 09/16/2020 10:18 AM FITNESS/WELLNESS DIRECTOR Pulse 73 09/16/2020 10:18 AM FITNESS/WELLNESS DIRECTOR Temperature 36.6 C (97.8 F) 09/16/2020 10:18 AM FITNESS/WELLNESS DIRECTOR Respiratory Rate 18 09/16/2020 10:18 AM FITNESS/WELLNESS DIRECTOR Oxygen Saturation 97% 09/16/2020 10:18 AM FITNESS/WELLNESS DIRECTOR Inhaled Oxygen Concentration - - Weight 104.3 kg (230 lb) 09/09/2020 1:33 PM FITNESS/WELLNESS DIRECTOR Height 190.5 cm (6' 3 ) 09/09/2020 1:33 PM FITNESS/WELLNESS DIRECTOR Body Mass Index 28.75 09/09/2020 1:33 PM FITNESS/WELLNESS DIRECTOR Plan of Treatment Health Maintenance Due Date Last Done Comments Colorectal Cancer Screening Colonoscopy (10 Years) 1953 Hepatitis C 1971 DTaP, Tdap and Td Vaccines ( 1 - Tdap) 01/21/1972 Zoster Vaccines (2 of 3) 07/07/2016 05/12/2016 Annual Medicare Wellness Visit 2018 Pneumococcal Vaccine: 65+ Years (2 of 2 - PPSV23 or PCV20) 03/30/2018 03/30/2017 COVID-19 Vaccine (3 - 2023-2 5 season) 2024 09/01/2020, 08/04/2020 Influenza Adult (#1) 2024 RSV Immunization or 60+ Years (1 - 1-dose 75+ series) 01/21/2028 Meningococcal B Vaccine Aged Out No l onger eligible based on patient's age to complete this topic Meningococcal Vaccine Aged Out No mau jony eligible based on patient's age to complete this topic RSV Immunizations Under 20 Months Aged Out No longer eligible b ased on patient's age to complete this topic Insurance MEDICARE AETNA Care Teams Forest Botany Instructor Relationship Specialty Start Date End Date Nj Harrington MD [address] [place] [id number] PCP - General INTERNAL MEDICINE 09/02/20
--- OUTSIDE RECORDS SUMMARY | 2024-10-31 11:55 | XMS_ITS | Clinical Summary ---
Author Organization [facility] Address [address] [place] [address] Care Team Providers Care Therapy Technician Name Role Phone Unavailable Primary Care Provider Unavailabl e Source Comments [facility],non-owned Affiliates and Associated Physician Practices is amultiple site organization consisting of ambulatory clinics and hospital sitesin [place]. This disclosure is being madepursuant to the Care Everywhere program and may not contain all information available regarding this patient. Last updated 18.[facility] [employer] Social History Tobacco Use Types Packs/Day Years Used Date Smoking Tobacco: Never Assessed Sex and Gender Information Value Date Recorded Sex Assigned at Not on file Gender Identity Not on file Sexual Orientation Not on file Plan of Treatment Health Maintenance Due Date Last Done Comments COLOGUARD (AGES 45-75) - COL ON CA SCREENING 1955 COLON MONITORING 1953 COLONOSCOPY - COLON CA SCREENING 1953 CT COLONOGRAPHY - COLON CA SCREENING 1955 Colorectal Cancer Screening 1953 FIT - COLON CA SCREENING 1953 FLEX SIG - COLON CA SCREENING 1953 LIPID TESTING 1953 HEPATITIS C SCREENING 01/16/1971 DTAP/TDAP/TD VACCINES (1 - Tdap) 01/21/1972 PNEUMOCOCCAL VACCINE 50+ (1 of 1 - PCV) 2003 ZOSTER VACCINE (1 of 2) 2003 COVID-19 VACCINE ( - 2023-2 5 season) 2024 INFLUENZA VACCINE (#1) 2024 DEPRESSION SCREENING 08/08/2024 Respiratory Syncytial Virus (RSV) Vaccine Pt: or over 60 yrs (1 - 1-dose 75+ series) 01/21/2028 HEPATITIS B VACCINE Aged Out No longe r eligible based on patient's age to complete this topic HIB VACCINE Aged Out No longer eligi ble based on patient's age to complete this topic HPV VACCINE Aged Out No longer eligi ble based on patient's age to complete this topic MENINGOCOCCAL (Group B) VACC INE SHARED DECISION-MAKING Aged Out No longer eligibl e based on patient's age to complete this topic MENINGOCOCCAL GROUPS A/C/Y/W VACCINE Aged Out No longer eligible b ased on patient's age to complete this topic
== END 2024-10-31 10:30 | disposition home or self-care (01) ==
PROVIDERS: PCP Internal Medicine; Visit Provider Internal Medicine
DX: J18.9 Pneumonia, unspecified organism (principal); J45.901 Unspecified asthma with (acute) exacerbation; R31.9 Hematuria, unspecified
CPT/HCPCS: 36415; 71046; 80053; 81001; 85025; 86140

== ENCOUNTER 2024-11-08 15:24 | Outpatient (CLI) | payer MEDICARE, SELFPAY ==
--- OUTSIDE RECORDS SUMMARY | 2024-11-08 15:40 | XMS_ITS | Clinical Summary ---
Author Organization [facility] Address [address] [place] [address] Care Team Providers Care Assistant Principal Name Role Phone Unavailable Primary Care Provider Unavailabl e Source Comments [facility],non-owned Affiliates and Associated Physician Practices is amultiple site organization consisting of ambulatory clinics and hospital sitesin [place], [place], [place]. This disclosure is being madepursuant to the Care Everywhere program and may not contain all information available regarding this patient. Last updated 18.[facility] [employer] Social History Tobacco Use Types Packs/Day Years [...] VACCINE ( - 2023-2 5 season) 2024 DEPRESSION SCREENING 08/08/2024 INFLUENZA VACCINE (Season Ended) 2025 Respiratory Syncytial Virus (RSV) Vaccine Pt: or [...]
--- OUTSIDE RECORDS SUMMARY | 2024-11-08 15:40 | XMS_ITS | Clinical Summary ---
Author Organization [facility] Address [address] [place] [address] Care Team Providers Care Sleep Tech Name Role Phone Nj Harrington MD Primary Care Provider Allergies No known active allergies Medications FELODIPINE [...] (09/09/2020): Added automatically from request for surgery [id number] Social History Tobacco Use Types Packs/Day Years [...] Comments Blood Pressure 139/80 09/16/2020 10:18 AM EDGE RUNNER Pulse 73 09/16/2020 10:18 AM EDGE RUNNER Temperature 36.6 C (97.8 F) 09/16/2020 10:18 AM EDGE RUNNER Respiratory Rate 18 09/16/2020 10:18 AM EDGE RUNNER Oxygen Saturation 97% 09/16/2020 10:18 AM EDGE RUNNER Inhaled Oxygen Concentration - - Weight 104.3 kg (230 lb) 09/09/2020 1:33 PM EDGE RUNNER Height 190.5 cm (6' 3 ) 09/09/2020 1:33 PM EDGE RUNNER Body Mass Index 28.75 09/09/2020 1:33 PM EDGE RUNNER Plan of Treatment Health Maintenance Due Date [...] this topic Insurance MEDICARE AETNA Care Teams Sleep Tech Relationship Specialty Start Date End Date Nj Harrington MD [address] [place] [phone] PCP - General INTERNAL MEDICINE 09/02/20
[2024-11-08 15:47] LABS: Basophils Absolute Auto 0.07 K/mm3 (0.00-0.10); Basophils Percent Auto 0.6 % (0.0-1.0); Eosinophils Absolute Auto 0.61 K/mm3 (0.02-0.50); Eosinophils Percent Auto 5.3 % (1.0-6.0); Hematocrit 42.5 % (37.0-46.0); Hemoglobin 13.4 g/dL (12.4-15.3); Immature Granulocyte Absolute 0.04 K/mm3 (0.00-0.00); Immature Granulocyte Percent A 0.3 % (0.0-0.0); Lymphocytes Absolute Auto 3.71 K/mm3 (1.10-4.50); Lymphocytes Percent Auto 32.3 % (18.0-42.0); Mean Corpuscular HGB Conc 31.5 g/dL (32-36); Mean Corpuscular Hemoglobin 30.2 pg (27.0-31.0); Mean Corpuscular Volume 95.7 fL (78.0-102.0); Mean Platelet Volume 8.6 fl (8.7-11.0); Monocytes Absolute Auto 1.12 K/mm3 (0.10-0.90); Monocytes Percent Auto 9.7 % (2.0-11.0); Neutrophils Absolute Auto 5.95 K/mm3 (1.70-7.20); Neutrophils Percent Auto 51.8 % (50.0-70.0); Platelet Count Result 354 K/mm3 (150-420); Red Blood Count 4.44 M/mm3 (4.70-6.10); Red Cell Distribution Width 13.3 % (11.6-14.4); White Blood Count 11.5 K/mm3 (4.8-10.8)
[2024-11-08 15:53] LABS: Add Urine Microscopic? YES; Appearance Urine Clear (Clear); Bilirubin Urine 2+ (Negative); Blood Urine 3+ (Negative); Color Urine Dark Yellow (Yellow); Glucose Urine UA Negative (Negative); Ketones Urine 1+ (Negative); Leukocyte Esterase Ur Negative (Negative); Nitrate Urine Negative (Negative); Protein Urine 1+ (Negative); Specific Grav Ur 1.025 (1.010-1.020)
[2024-11-08 16:05] LABS: Bacteria Urine 2+ /hpf; RBC Urine >75 /hpf (0-2); Squamous Epithelial Cell Urine Few /hpf (Few); WBC Urine 0-3 /hpf (0-3)
[2024-11-08 16:06] LABS: Mucus Urine Few /lpf
[2024-11-08 16:47] LABS: Alanine Aminotransferase 36 U/L (16-63); Albumin Level 3.3 g/dL (3.4-5.0); Alkaline Phosphatase 65 U/L (46-116); Anion Gap 8 mmol/L (4-12); Aspartate Amino Transferase 16 U/L (15-37); Bilirubin,Total 0.7 mg/dL (0.00-1.00); Blood Urea Nitrogen 14 mg/dL (7-18); CRP 0.7 mg/dL (0.0-0.9); Carbon Dioxide 29 mmol/L (21-32); Chloride 102 mmol/L (98-108); Estimated Glomerular Filt Rate > 60; Glucose 89 mg/dL (70-99); Osmolality Calculated 287 mOsm/kg (285-295); Potassium 4.8 mmol/L (3.5-5.1); Sodium 139 mmol/L (136-145); Total Protein 6.9 g/dL (6.4-8.2)
== END 2024-11-08 15:25 | disposition home or self-care (01) ==
LOC: CHSLAB 15:26
PROVIDERS: PCP Internal Medicine; Visit Provider Internal Medicine
DX: J12.89 Other viral pneumonia (principal); R94.5 Abnormal results of liver function studies; D72.829 Elevated white blood cell count, unspecified
CPT/HCPCS: 36415; 80053; 81001; 85025; 86140

== ENCOUNTER 2024-11-28 13:13 | Emergency (ER) | payer MEDICARE, SELFPAY ==
[2024-11-28 13:13] VITALS: BP 153/88; PULSE 74; RESP 16; TEMP 36.6; O2SAT 93
--- NOTE | 2024-11-28 13:21 | ED.ABDPAIN ---
HPI - Abdominal Pain General Chief Complaint: Abdominal Pain Stated Complaint: side pain Time Seen by Provider: 11/28/24 13:21 Source: patient Mode of arrival: ambulatory Limitations: no limitations History of Present Illness HPI narrative: 69-year-old male with a history of hypertension, kidney stones, GERD, lumbar strain, lung cancer with left lower lobectomy, hematuria / bladder cancer status post removal on 11/19/2024 presents to the ED with -- right lower quadrant abdominal pain. No radiation of the pain. No exacerbating or relieving factors. No fever or chills. No dysuria or hematuria. no nausea/ vomiting / diarrhea Patient had a CT scan in September when he presented here with hematuria which is noted to be unremarkable. He had another CT last month at [facility] which was unremarkable. MD elicited complaint: abdominal pain ( Right lower quadrant abdominal pain) Pertinent past history: kidney stones and past UTI Onset (ago): day(s) ( 1 day) Pain Consistency: intermittent Location: RLQ Severity: mild Quality: aching Radiation: none Migration to: no migration Exacerbating factors: nothing Relieving factors: nothing Associated symptoms: denies other symptoms Related Data Home Medications ?Medication ?Instructions ?Recorded ?Confirmed ?Last Taken ?Type aspirin 81 mg tablet,delayed 81 mg PO DAILY 07/20/19 07/30/22 05/12/21 History release cholecalciferol (vitamin D3) 50 2,000 unit PO DAILY 07/20/19 07/30/22 07/19/19 History mcg (2,000 unit) tablet (Vitamin D3) duloxetine 20 mg capsule,delayed 20 mg PO QAM 07/20/19 07/30/22 05/13/21 06:00 History release (Cymbalta) finasteride 5 mg tablet 5 mg PO DAILY 07/20/19 07/30/22 07/19/19 History fluticasone propionate 50 2 spray intranasal PRN PRN Allergy 07/20/19 07/30/22 07/19/19 History mcg/actuation nasal Symptoms spray,suspension (Flonase Allergy Relief) ipratropium 0.5 mg-albuterol 3 mg 3 ml inhalation PRN PRN SOB 07/20/19 07/30/22 Unknown History (2.5 mg base)/3 mL nebulization soln pravastatin 10 mg tablet 10 mg PO QPM 07/20/19 07/30/22 Unknown History spironolactone 25 mg tablet 25 mg PO DAILY 07/20/19 07/30/22 07/19/19 History trazodone 150 mg tablet 75 mg PO HS 07/20/19 07/30/22 07/19/19 History albuterol sulfate 90 mcg/actuation 2 puff inhalation PRN PRN SOB 05/01/21 07/30/22 Unknown History aerosol inhaler felodipine 10 mg tablet,extended 10 mg PO HS 05/01/21 07/30/22 Unknown History release 24 hr pantoprazole 40 mg tablet,delayed 40 mg PO QPM 05/01/21 07/30/22 Unknown History release famotidine 40 mg tablet (Pepcid) 40 mg PO DAILY 05/04/21 07/30/22 Unknown History montelukast 10 mg tablet 10 mg PO DAILY 05/04/21 07/30/22 Unknown History Allergies Allergy/AdvReac Type Severity Reaction Status Date / Time No Known Allergies Allergy Verified 11/28/24 13:19 Review of Systems Review of Systems: All systems reviewed & are unremarkable except as noted in HPI and below Constitutional: Constitutional: Reports as per HPI and Reports no additional constitutional complaints Eyes: Eyes: Reports as per HPI and Reports no additional eye complaints ENT: Reports system reviewed and no additional complaints, except as documented and Reports as per HPI Cardiovascular: Cardiovascular: Reports as per HPI and Reports no additional cardiovascular complaints Respiratory: Respiratory: Reports as per HPI and Reports no additional respiratory complaints Gastrointestinal: Gastrointestinal: Reports as per HPI and Reports no additional gastrointestinal complaints Genitourinary: Genitourinary: Reports no additional male genitourinary complaints and Reports as per HPI Comments: status post cystoscopy with removal of tumor on 11/19/2024. Musculoskeletal: Musculoskeletal: Reports no additional musculoskeletal complaints and Reports as per HPI Integumentary/Breasts: Skin/Breast: Reports system reviewed and no additional complaints, except as docu and Reports as per HPI Neurologic: Reports system reviewed and no additional complaints, except as documented and Reports as per HPI Psychiatric: Psychiatric: Reports no additional psychiatric complaints and Reports as per HPI Endocrine: Endocrine: Reports no additional endocrine complaints and Reports as per HPI Hematologic/Lymphatic: Hematologic/Lymphatic: Reports no additional hematologic/lymphatic complaints and Reports as per HPI Allergic/Immunologic: Allergic/Immunologic: Reports no additional allergic/immunologic complaints and Reports as per HPI [facility] Past Medical History Medical History Bladder cancer Bilateral nephrolithiasis UTI (urinary tract infection) Strain of lumbar region High cholesterol GERD (gastroesophageal reflux disease) Hx of malignant neoplasm of lung Asthma BPH (benign prostatic hyperplasia) Depression HTN (hypertension) Surgical History Surgical History Status post cystoscopy H/O hernia repair lap RIH repair w/ mesh, davinci assisted 05/13/21 History of lobectomy of lung Left lower 2006 Family History Family History Father Brain cancer Mother Breast cancer Uterine cancer Cerebrovascular accident Sibling Parkinson disease Social History Social History Smoking packs per day: 2 Smoking cigarettes per day: 40.0 Years smoked: 19 Smoking pack-years: 38.00 Smoking status: Former smoker Tobacco type: cigarettes Smoking end date: 03/08/93 Alcohol intake: current Substance use: never Living arrangements: other Occupation/Education: occupation Gender identity (if verbalized by the patient): Male Sexual Orientation (if Verbalized by the Patient): Straight or Heterosexual Spiritual care concerns: No Exam Narrative: vitals are stable. Afebrile. Const: General: no acute distress Orientation/consciousness: patient oriented x3 Limitations: no limitations HENMT: Ears: external ears normal Face/Nose/Sinus: Normal external nose present Face and sinus: normal facial exam Mouth: Yes Normal oral and palatal mucosa present Throat: posterior oropharynx normal Eyes: Conjunctivae: conjunctivae normal Pupils: Equal, round and reactive pupils present EOM: EOMs intact bilaterally Direct Ophthalmoscopy: no photophobia Neck: Neck: normal visual inspection, no lymphadenopathy and no meningeal signs Chest: Chest palpation & inspection: normal inspection of the chest Resp: Effort & Inspection: normal respiratory effort Auscultation: clear to auscultation bilaterally Cardio: Rate: regular rate Rhythm: regular rhythm GI: GI Palp: Yes Soft to palpation Auscultation: normal bowel sounds Rectal Exam: normal sphincter tone : General: Yes bladder normal to palpation and Yes CVA tenderness ( tenderness in the right CVA angle.) Male General Exam: Yes normal external exam Other: No hernia noted on coughing in the right groin Back/Spine/Pelvis: Back: CVA tenderness Skin: General skin exam: normal color Rashes: no rashes Wounds: no wounds Neuro: General: patient oriented x3, moves all extremities, no meningeal signs, no focal motor deficits and CN's II-XI intact bilaterally Cranial nerves: Yes Nystagmus not present Speech: normal speech Gait exam (Neuro): Normal gait present Extrem: General: normal to inspection and no clubbing, cyanosis or edema Psych: Mental Status: mental status grossly normal Affect: normal affect Attitude: cooperative Course Course Emergency Course: Right flank pain/ Abdominal pain-- clinical examination is unremarkable. No hernia noted. Normal white cell count. UA does not show any hematuria or evidence of infection. patient had a CT scan in September and a repeat CT scan in October which did not show any acute findings. Patient had a cystoscopy with removal of bladder tumor on 11/19/2024. Vital Signs Vital signs: Vital Signs Temperature 36.6 C 11/28/24 13:13 Pulse Rate 74 11/28/24 13:13 Respiratory Rate 16 11/28/24 13:13 Blood Pressure 153/88 H 11/28/24 13:13 Pulse Oximetry 93 11/28/24 13:13 Oxygen Delivery Room Air 11/28/24 13:13 Temperature 36.6 C 11/28/24 13:13 Pulse Rate 74 11/28/24 13:13 Respiratory Rate 16 11/28/24 13:13 Blood Pressure 153/88 H 11/28/24 13:13 Pulse Oximetry 93 11/28/24 13:13 Oxygen Delivery Room Air 11/28/24 13:13 MDM - Abdominal Pain MDM Narrative Medical decision making narrative: Abdominal pain Differential Diagnosis Differential diagnosis: Likely calculus of kidney and pancreatitis Medical Records Attestation: I reviewed the patient's medical records. Lab Data Attestation: I reviewed the patient's lab results. 11/28/24 13:50 11/28/24 13:50 Labs: Lab Results 11/28/24 Range/Units 13:50 WBC 9.1 (4.8-10.8) K/mm3 RBC 4.50 L (4.70-6.10) M/mm3 Hgb 13.6 (12.4-15.3) g/dL Hct 43.6 (37.0-46.0) % MCV 96.9 (78.0-102.0) fL MCH 30.2 (27.0-31.0) pg MCHC 31.2 L (32-36) g/dL RDW 13.6 (11.6-14.4) % Plt Count 353 (150-420) K/mm3 MPV 8.6 L (8.7-11.0) fl Immature Gran % (Auto) 0.4 H (0.0-0.0) % Neut % (Auto) 50.2 (50.0-70.0) % Lymph % (Auto) 32.2 (18.0-42.0) % [place] % (Auto) 12.5 H (2.0-11.0) % Eos % (Auto) 3.8 (1.0-6.0) % Baso % (Auto) 0.9 (0.0-1.0) % Lymph # (Auto) 2.94 (1.10-4.50) K/mm3 [place] # (Auto) 1.14 H (0.10-0.90) K/mm3 Eos # (Auto) 0.35 (0.02-0.50) K/mm3 Baso # (Auto) 0.08 (0.00-0.10) K/mm3 Abs Immat Gran (auto) 0.04 H (0.00-0.00) K/mm3 Absolute Neuts (auto) 4.58 (1.70-7.20) K/mm3 Absolute Nucleated RBC 0.00 (0.00-0.00) K/mm3 Nucleated RBC % 0.0 (0-0.0) % Sodium 140 (136-145) mmol/L Potassium 3.9 (3.5-5.1) mmol/L Chloride 103 (98-108) mmol/L Carbon Dioxide 28 (21-32) mmol/L Anion Gap 9 (4-12) mmol/L BUN 13 (7-18) mg/dL Creatinine 1.00 (0.70-1.30) mg/dL Estim Creat Clear Calc 72 ml/min Estimated GFR > 60 (59 - ) Glucose 89 (70-99) mg/dL Calculated Osmolality 289 (285-295) mOsm/kg Lactic Acid 1.5 (0.4-2.0) mmol/L Calcium 9.4 (8.5-10.1) mg/dL Total Bilirubin 0.6 (0.00-1.00) mg/dL AST 18 (15-37) U/L ALT 24 (16-63) U/L Alkaline Phosphatase 58 (46-116) U/L Total Protein 7.2 (6.4-8.2) g/dL Albumin 3.6 (3.4-5.0) g/dL Lipase 43 (16-77) U/L Urine Color Light yellow (Yellow) Urine Appearance Clear (Clear) Urine pH 5.5 (5.0-8.0) Ur Specific [place] 1.010 (1.010-1.020) Urine Protein Negative (Negative) Urine Glucose (UA) Negative (Negative) Urine Ketones Negative (Negative) Ur Blood (Man) Trace-intact H (Negative) Urine Nitrate Negative (Negative) Urine Bilirubin Negative (Negative) Urine Urobilinogen 0.2 (0.2-1.0) mg/dL Leukocyte Esterase Rfl Negative (Negative) KASH/UL Discharge Plan Discharge Clinical Impression: Abdominal pain Qualifiers: Abdominal location: right lower quadrant Qualified Code(s): R10.31 - Right lower quadrant pain Patient Disposition: Home Condition: Stable Instructions: Antibiotic Form, Abdominal Pain (ED) Patient Language: Upper Sorbian Prescriptions: No Action tramadol 50 mg tablet 50 mg PO Q6H PRN (Reason: pain) Qty: 20 0RF cyclobenzaprine 10 mg tablet 10 mg PO TID Qty: 20 0RF nitrofurantoin monohyd/m-cryst [Macrobid] 100 mg capsule 100 mg PO Q12H 7 Days Qty: 14 0RF Rx Instructions: must administer with a meal/food ipratropium-albuterol 0.5 mg-3 mg(2.5 mg base)/3 mL solution for nebulization 3 ml INHALATION PRN PRN (Reason: SOB) aspirin 81 mg Tablet,Delayed Release (Dr/Ec) 81 mg PO DAILY spironolactone 25 mg Tablet 25 mg PO DAILY pravastatin 10 mg tablet 10 mg PO QPM trazodone 150 mg tablet 75 mg PO HS fluticasone propionate [Flonase Allergy Relief] 50 mcg/actuation [place],Suspension 2 spray INTRANASAL PRN PRN (Reason: Allergy Symptoms) finasteride 5 mg tablet 5 mg PO DAILY duloxetine [Cymbalta] 20 mg Capsule,Delayed Release(Dr/Ec) 20 mg PO QAM cholecalciferol (vitamin D3) [Vitamin D3] 2,000 unit Tablet 2,000 unit PO DAILY acetaminophen [Tylenol] 325 mg capsule 650 mg PO Q8H PRN (Reason: pain) Qty: 20 0RF felodipine 10 mg Tablet Extended Release 24 Hr 10 mg PO HS pantoprazole 40 mg tablet,delayed release (DR/EC) 40 mg PO QPM albuterol sulfate 90 mcg/actuation HFA aerosol inhaler 2 puff INHALATION PRN PRN (Reason: SOB) montelukast 10 mg Tablet 10 mg PO DAILY famotidine [Pepcid] 40 mg Tablet 40 mg PO DAILY ibuprofen 800 mg tablet 800 mg PO Q8H PRN (Reason: pain) Qty: 12 0RF Follow-up/Referrals: Nj Harrington MD [Primary Care Provider] - Time of Disposition: 14:33
[2024-11-28 13:56] LABS: Add Urine Microscopic? NO; Appearance Urine Clear (Clear); Basophils Absolute Auto 0.08 K/mm3 (0.00-0.10); Basophils Percent Auto 0.9 % (0.0-1.0); Bilirubin Urine Negative (Negative); Blood Urine Trace-intact (Negative); Color Urine Light Yellow (Yellow); Eosinophils Absolute Auto 0.35 K/mm3 (0.02-0.50); Eosinophils Percent Auto 3.8 % (1.0-6.0); Glucose Urine UA Negative (Negative); Hematocrit 43.6 % (37.0-46.0); Hemoglobin 13.6 g/dL (12.4-15.3); Immature Granulocyte Absolute 0.04 K/mm3 (0.00-0.00); Immature Granulocyte Percent A 0.4 % (0.0-0.0); Ketones Urine Negative (Negative); Leukocyte Esterase Ur Negative LEU/UL (Negative); Lymphocytes Absolute Auto 2.94 K/mm3 (1.10-4.50); Lymphocytes Percent Auto 32.2 % (18.0-42.0); Mean Corpuscular HGB Conc 31.2 g/dL (32-36); Mean Corpuscular Hemoglobin 30.2 pg (27.0-31.0); Mean Corpuscular Volume 96.9 fL (78.0-102.0); Mean Platelet Volume 8.6 fl (8.7-11.0); Monocytes Absolute Auto 1.14 K/mm3 (0.10-0.90); Monocytes Percent Auto 12.5 % (2.0-11.0); Neutrophils Absolute Auto 4.58 K/mm3 (1.70-7.20); Neutrophils Percent Auto 50.2 % (50.0-70.0); Nitrate Urine Negative (Negative); Platelet Count Result 353 K/mm3 (150-420); Protein Urine Negative (Negative); Red Cell Distribution Width 13.6 % (11.6-14.4); Urobilinogen Urine 0.2 mg/dL (0.2-1.0); White Blood Count 9.1 K/mm3 (4.8-10.8); pH Urine 5.5 (5.0-8.0)
--- NOTE | 2024-11-28 14:12 | PC.NURSE ---
PT IS SITTING UP ON STRETCHER IN EXAM ROOM AWAITING RESULTS AT THIS TIME. PT DENIES ANY NEEDS OR COMPLAINTS. REPORTS PAIN IS ABOUT THE SAME, CONTINUES TO BE INTERMITTENT. WILL CONTINUE TO MONITOR.
[2024-11-28 14:14] LABS: Lactic Acid Reflex 1.5 mmol/L (0.4-2.0)
[2024-11-28 14:21] LABS: Alanine Aminotransferase 24 U/L (16-63); Albumin Level 3.6 g/dL (3.4-5.0); Alkaline Phosphatase 58 U/L (46-116); Anion Gap 9 mmol/L (4-12); Aspartate Amino Transferase 18 U/L (15-37); Bilirubin,Total 0.6 mg/dL (0.00-1.00); Blood Urea Nitrogen 13 mg/dL (7-18); Calcium 9.4 mg/dL (8.5-10.1); Carbon Dioxide 28 mmol/L (21-32); Chloride 103 mmol/L (98-108); Estimated CRCL calculation 72 ml/min; Estimated Glomerular Filt Rate > 60; Glucose 89 mg/dL (70-99); Lipase 43 U/L (16-77); Osmolality Calculated 289 mOsm/kg (285-295); Potassium 3.9 mmol/L (3.5-5.1); Sodium 140 mmol/L (136-145); Total Protein 7.2 g/dL (6.4-8.2)
[2024-11-28 14:37] VITALS: BP 148/88; PULSE 70; RESP 18; O2SAT 98
--- OUTSIDE RECORDS SUMMARY | 2024-11-28 14:55 | XMS_ITS | Clinical Summary ---
Author Organization [facility] Address [address] [place] [address] Care Team Providers Care Acid Tank Liner Name Role Phone Nj Harrington MD Primary Care Provider [phone] Allergies No known active allergies Medications FELODIPINE ER OR Take 10 mg by mouth. Active pantoprazole EC 20 MG tablet Take 1 tablet (20 mg total) by mouth daily. Active famotidine 10 MG tablet Take 4 tablets (40 mg total) by mouth 2 (two) times daily. Active montelukast (SINGULAIR) 10 MG tablet Take 1 tablet (10 mg total) by mouth nightly at bedtime. Active pravastatin (PRAVACHOL) 10 MG tablet Take 1 tablet (10 mg total) by mouth nightly at bedtime. Active spironolactone (ALDACTONE) 25 MG tablet Take 1 tablet (25 mg total) by mouth daily. Active traZODone (DESYREL) 150 MG tablet Take 1 tablet (150 mg total) by mouth nightly at bedtime. Active fluticasone furoate-vilant lakesha (BREO ELLIPTA) 100-25 MCG/ACT inhaler Inhale 1 puff into the lungs daily. Active albuterol sulfate HFA 108 (90 Base) MCG/ACT inhaler Inhale 2 puffs into the lungs every 6 (six) hours as needed for Wheezing. Active aspirin 81 MG chewable tablet Chew 1 tablet (81 mg total) by mouth daily. Active DULoxetine (CYMBALTA) 20 MG capsule Take 1 capsule (20 mg total) by mouth daily. Active Fluticasone-Sa lmeterol 232-14 MCG/ACT AEROSOL POWDER, BREATH ACTIVATED 1 11/14/19 25 Discontinued ADVAIR HFA 230-21 MCG/ACT inhaler 0 11/14/19 25 Discontinued Active Problems Problem Noted Date Diagnosed Date Microhematuria 09/09/2020 Overview (09/09/2020): Added automatically from request for surgery [id number] Encounters Date Type Department Care Team Description 11/16/2024 9:16 AM CDT - 11/16/2024 11:59 PM CDT Hospital Encounter [facility] [address] [place] [address] Elizabeth Delvalle III, MD Discharge Disposition: Home or Self Care (Routine Discharge) 11/16/2024 Travel 11/13/2024 1:55 PM CDT - 11/13/2024 2:23 PM CDT Surgery [facility] [address] [place] [address] Elizabeth Delvalle III, MD CYSTOSCOPY FLEXIBLE 11/13/2024 10:59 AM CDT - 11/13/2024 2:09 PM CDT Hospital Encounter [facility] [address] [place] [address] Elizabeth Delvalle III, MD Discharge Disposition: Home or Self Care (Routine Discharge) 11/13/2024 Transcribe Orders [facility] Pre Access Team [address] [place] [address] Elizabeth Delvalle III, MD 11/12/2024 Travel from Last 3 Months Social History Tobacco Use Types Packs/Day Years Used Date Smoking Tobacco: Former Cigarettes Q uit: 1993 Smokeless Tobacco: Never Alcohol Use Standard Drinks/Week Comments Never 0 (1 standard drink = 0.6 oz pur e alcohol) AUDIT-C Answer Date Recorded Q1: How often do you have a drink containing alc ohol? Never 09/09/2020 Average Number of Drinks Not on file 021 Frequency of Binge Drinking Not on file 09/2020 Sex and Gender Information Value Date Recorded Sex Assigned at Male 11/14/2024 12:47 PM CDT Legal Sex Male 8:46 PM CDT Gender Identity Male 12/18/2021 11:42 AM CDT Sexual Orientation Not on file Last Filed Vital Signs Vital Sign Reading Time Taken Comments Blood Pressure 160/86 11/13/2024 1:49 PM CDT Pulse 82 11/13/2024 1:49 PM CDT Temperature 36.2 C (97.1 F) 11/13/2024 1:49 PM CDT Respiratory Rate 16 11/13/2024 1:49 PM CDT Oxygen Saturation 100% 11/13/2024 1:49 PM CDT Inhaled Oxygen Concentration - - Weight 99.8 kg (220 lb) 11/13/2024 11:48 AM CDT Height 190.5 cm (6' 3 ) 11/13/2024 11:48 AM CDT Body Mass Index 27.5 11/13/2024 11:48 AM CDT Plan of Treatment Health Maintenance Due Date Last Done Comments Colorectal Cancer Screening Colonoscopy (10 Years) 1953 Hepatitis C 1971 DTaP, Tdap and Td Vaccines ( 1 - Tdap) 01/21/1972 Zoster Vaccines (2 of 3) 07/07/2016 05/12/2016 Annual Medicare Wellness Visit 2018 Pneumococcal Vaccine: 50+ Years (2 of 2 - PPSV23) 03/30/2018 03/30/2017 COVID-19 Vaccine (3 - 2023-2 5 season) 2024 09/01/2020, 08/04/2020 RSV Immunization or 60+ Years (1 - 1-dose 75+ series) 01/21/2028 AAA SCREENING Completed 11/16/2024 Meningococcal B Vaccine Aged Out No l onger eligible based on patient's age to complete this topic Meningococcal Vaccine Aged Out No mau jony eligible based on patient's age to complete this topic RSV Immunizations Under 20 Months Aged Out No longer eligible b ased on patient's age to complete this topic Procedures Procedure Name Priority Date/Time Associated Diagnosis Comments CT ABD+PEL WWO CON Routine 11/16/2024 9: 50 AM CDT Microhematuria CYSTOURETHROSCOPY 11/13/2024 1:2 6 PM CDT BPH WITHOUT OBSTRUCTION/LOWER URINARY TRACT SYMPTOMS; MICROHEMATURIA; N40.0, R31.29 from Last 3 Months Results * CT ABD+PEL WWO CON (11/16/2024 9:50 AM CDT) Anatomical Region Laterality Modality Abdomen Computed Tomogra phy 11/19/2024 6:27 AM CDT Impressions 11/19/2024 6:47 AM CDT IMPRESSION: 1. There is a small filling defect in the right urinary bladder base measuring about 1 cm which could represent a neoplasm. There is mild urinary bladder wall thickening and urinary bladder fundus with a few tiny foci of air, nonspecific. Correlation with cystoscopy findings is recommended. 2. There are innumerable predominantly sub-6 mm nodular opacities in the lung bases, probably infectious or inflammatory in etiology. There are a few larger nodules measuring up to 8 mm which may be infectious or inflammatory as well but are indeterminate. A CT chest in 3 months is recommended to ensure stability or resolution if there are no recent comparison examinations. Referred By: ELIZABETH DELVALLE III Interpreted By: Fly Montana MD, 11/19/2024 6:27 AM Narrative 11/19/2024 6:47 AM CDT [address] [place] [address] Examination: CT ABD+PEL WWO CON Exam time: 11/16/2024 9:37 AM INDICATION: Microhematuria. A recent diagnosis of bladder cancer. COMPARISON: CT abdomen and pelvis 02/06/2016 TECHNIQUE: Computed tomography of the abdomen and pelvis was obtained before and after the administration of intravenous contrast, 92 mL Isovue-[address] urogram protocol without immediate complication. Delayed images were also obtained. No oral contrast was administered. Ice Cream Dipper film of the abdomen as well as additional IVP images were also obtained. A dose lowering technique was used for this procedure, which may include, but is not limited to, dose reduction technique, automated exposure control, the use of iterative reconstruction, and ALARA (As Low As Reasonably Achievable) / Image Gently techniques. FINDINGS: There are innumerable predominantly sub-6 mm nodular opacities in the visualized lung bases, presumably infectious or inflammatory in etiology. There are a few larger nodules measuring up to 8 mm. The liver and gallbladder are unremarkable. There is a small water density splenic cyst. The pancreas and adrenal glands are unremarkable. There is atherosclerosis of the abdominal aorta without aneurysm. There is diverticulosis of the sigmoid colon without evidence for diverticulitis. The appendix is normal. No bowel obstruction or free intraperitoneal air. The prostate is enlarged. No acute osseous abnormality. There is an unchanged coarse calcification at the lateral aspect of the right renal midpole. There is a sub-4 mm nonobstructing calculus in the inferior right renal pole. There is no ureteral calculus. There is no calculus in the urinary bladder. There are a few small left renal cysts. There is mild thickening of the urinary bladder wall at the urinary bladder fundus with a few tiny foci of air. The opacified portions of the renal collecting systems and ureters are unremarkable. There is a small filling defect in the right urinary bladder base measuring about 1 cm on the delayed images, series 6 image 129. Procedure Note Fly Montana MD - 11/19/[address] [place] [address] Examination: CT ABD+PEL WWO CON Exam time: 11/16/2024 9:37 AM INDICATION: Microhematuria. A recent diagnosis of bladder cancer. COMPARISON: CT abdomen and pelvis 02/06/2016 TECHNIQUE: Computed tomography of the abdomen and pelvis was obtainedbefore and after the administration of intravenous contrast, 92 mLIsovue-[address] urogram protocol without immediatecomplication. Delayed images were also obtained. No oral contrast wasadministered. Ice Cream Dipper film of the abdomen as well as additional IVP imageswere also obtained. A dose lowering technique was used for this procedure,which may include, but is not limited to, dose reduction technique,automated exposure control, the use of iterative reconstruction, and ALARA(As Low As Reasonably Achievable) / Image Gently techniques. FINDINGS: There are innumerable predominantly sub-6 mm nodular opacitiesin the visualized lung bases, presumably infectious or inflammatory inetiology. There are a few larger nodules measuring up to 8 mm. The liverand gallbladder are unremarkable. There is a small water density spleniccyst. The pancreas and adrenal glands are unremarkable. There isatherosclerosis of the abdominal aorta without aneurysm. There isdiverticulosis of the sigmoid colon without evidence for diverticulitis.The appendix is normal. No bowel obstruction or free intraperitoneal air.The prostate is enlarged. No acute osseous abnormality. There is an unchanged coarse calcification at the lateral aspect of theright renal midpole. There is a sub-4 mm nonobstructing calculus in theinferior right renal pole. There is no ureteral calculus. There is nocalculus in the urinary bladder. There are a few small left renal cysts.There is mild thickening of the urinary bladder wall at the urinarybladder fundus with a few tiny foci of air. The opacified portions of therenal collecting systems and ureters are unremarkable. There is a smallfilling defect in the right urinary bladder base measuring about 1 cm onthe delayed images, series 6 image 129. IMPRESSION: 1. There is a small filling defect in the right urinary bladder basemeasuring about 1 cm which could represent a neoplasm. There is mildurinary bladder wall thickening and urinary bladder fundus with a few tinyfoci of air, nonspecific. Correlation with cystoscopy findings isrecommended. 2. There are innumerable predominantly sub-6 mm nodular opacities in thelung bases, probably infectious or inflammatory in etiology. There are afew larger nodules measuring up to 8 mm which may be infectious orinflammatory as well but are indeterminate. A CT chest in 3 months isrecommended to ensure stability or resolution if there are no recentcomparison examinations. Referred By: ELIZABETH DELVALLE III Interpreted By: Fly Montana MD, 11/19/2024 6:27 AM us Elizabeth Delvalle III, MD CT Final Re sult from Last 3 Months Insurance MEDICARE [employer] Care Teams Acid Tank Liner Relationship Specialty Start Date End Date Nj Harrington MD [address] [place] [address] PCP - General INTERNAL MEDICINE 09/02/20
--- OUTSIDE RECORDS SUMMARY | 2024-11-28 14:55 | XMS_ITS | Clinical Summary ---
Author Organization [facility] Address [address] [place] [address] Care Team Providers Care Office Messenger Name Role Phone Unavailable Primary Care Provider Unavailabl e Source Comments [facility],non-owned Affiliates and Associated Physician Practices is amultiple site organization consisting of ambulatory clinics and hospital sitesin [place], [place], [place] and [place]. This disclosure is being madepursuant to the Care Everywhere program and may not contain all information available regarding this patient. 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
--- OUTSIDE RECORDS SUMMARY | 2024-11-28 15:44 | XMS_ITS | Clinical Summary ---
Author Organization [facility] Address [address] [place] [address] Care Team Providers Care Sleeve Maker Name Role Phone Nj Harrington MD Primary Care Provider [phone] Allergies No known active allergies Medications FELODIPINE [...] (09/09/2020): Added automatically from request for surgery [id number] Encounters Date Type Department Care Team Description 11/16/2024 9:16 AM CDT - 11/16/2024 11:59 PM CDT Hospital Encounter [facility] [address] [place] [address] Elizabeth Delvalle III, MD Discharge Disposition: Home or Self Care (Routine Discharge) 11/16/2024 Travel 11/13/2024 1:55 PM CDT - 11/13/2024 2:23 PM CDT Surgery [facility] [address] [place] [address] Elizabeth Delvalle III, MD CYSTOSCOPY FLEXIBLE 11/13/2024 10:59 AM CDT - 11/13/2024 2:09 PM CDT Hospital Encounter [facility] [address] [place] [address] Elizabeth Delvalle III, MD Discharge Disposition: Home or Self Care (Routine Discharge) 11/13/2024 Transcribe Orders [facility] Pre Access Team [address] [place] [address] Elizabeth Delvalle III, MD 11/12/2024 Travel from [...] 6:27 AM Narrative 11/19/2024 6:47 AM CDT [address] [place] [address] Examination: CT ABD+PEL WWO CON Exam time: 11/16/2024 9:37 AM INDICATION: Microhematuria. A recent diagnosis of bladder cancer. COMPARISON: CT abdomen and pelvis 02/06/2016 TECHNIQUE: Computed tomography of the abdomen and pelvis was obtained before and after the administration of intravenous contrast, 92 mL Isovue-[address] urogram protocol without immediate complication. Delayed images were also obtained. No oral contrast was administered. Engineer Intern film of the abdomen as well as [...] Procedure Note Fly Montana MD - 11/19/[address] [place] [address] Examination: CT ABD+PEL WWO CON Exam time: 11/16/2024 9:37 AM INDICATION: Microhematuria. A recent diagnosis of bladder cancer. COMPARISON: CT abdomen and pelvis 02/06/2016 TECHNIQUE: Computed tomography of the abdomen and pelvis was obtainedbefore and after the administration of intravenous contrast, 92 mLIsovue-[address] urogram protocol without immediatecomplication. Delayed images were also obtained. No oral contrast wasadministered. Engineer Intern film of the abdomen as well as [...] 3 Months Insurance MEDICARE [employer] Care Teams Sleeve Maker Relationship Specialty Start Date End Date Nj Harrington MD [address] [place] [address] PCP - General INTERNAL MEDICINE 09/02/20
--- OUTSIDE RECORDS SUMMARY | 2024-11-28 15:44 | XMS_ITS | Clinical Summary ---
Author Organization [facility] Address [address] [place] [address] Care Team Providers Care Cone Operator Name Role Phone Unavailable Primary Care Provider Unavailabl e Source Comments [facility],non-owned Affiliates and Associated Physician Practices is amultiple site organization consisting of ambulatory clinics and hospital sitesin [place], [place], [place] and [place]. This disclosure is being madepursuant to the Care Everywhere program and may not contain all information available regarding this patient. 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
== END 2024-11-28 14:37 | disposition home or self-care (01) ==
PROVIDERS: Emergency Provider Internal Medicine Critical Care Medicine; PCP Internal Medicine
DX: R10.31 Right lower quadrant pain (principal); I10 Essential (primary) hypertension; Z85.118 Personal history of other malignant neoplasm of bronchus and lung; Z85.51 Personal history of malignant neoplasm of bladder; Z87.891 Personal history of nicotine dependence
CPT/HCPCS: 36415; 80053; 81003; 83605; 83690; 85025; 99283

== ENCOUNTER 2024-12-19 14:53 | Outpatient (RCR) | payer MEDICARE, SELFPAY ==
--- NOTE | 2024-12-19 15:32 | OPREHPOC ---
Outpatient Therapy Plan of Care This is a Multidisciplinary Plan of Care that may contain components documented by all disciplines (PT, OT, and ST.) PT Problem 1 PT Problem #1 Knowledge Deficit PT Goal 1 Goal / Goal Update patient will be independent with home shirley Target Visit 2 PT Problem 2 PT Problem #2 Impaired Functional Mobility PT Goal 1 Goal / Goal Update no reported vertigo in the last week no visible nystagmus with peter-hallpike testing Target Visit 4
--- NOTE | 2024-12-19 15:33 | PTOPEVAL1 ---
Assessment and note entered by JT File, PT Evaluation Information Assessment Status Evaluation ICD-10 Condition Codes (PT) Dizziness and Giddiness R42,BPPV H81.12 Onset 11/06/24 Subjective Information patient reports he has been having vertigo symptoms when laying down for about a month. he reports he is not sure if it is more one side vs the other. he reports he has only noticed the symptoms when laying on his back. he reports the symptoms last less than a minute. he reports he is on meclizine. he reports he did take it today. he reports he has been on the meclizine for a week and has noticed some improvement. Reported Pain Level Pain Score 0: Self Report Assessment PT Clinical Summary mr. jhaveri is a 69 yo man who presents to skilled PT services for evaluation and treatment of vertigo symptoms when laying down. he presents with signs and symptoms consistent with BPPV of the L ear. however, it is difficult to accurately diagnose today due to his taking of meclizine recently. he would benefit from continued skilled PT with progression of shirley maneuver and cawthorn cuate habituation exercises to return to his prior level functional activity performance and quality of life. Plan of Care Interventions Neuro Re-education,Patient/Caregiver Education, Therapeutic Activities,Therapeutic Exercise PT Services Indicated Yes Treatment Frequency and 2x weekly for 4 visits Duration These treatments will address the objective and functional deficits as defined above. The patient will be advanced safely and appropriately in order for the patient to progress towards his/her prior level of function. Additional exercises will be introduced and as well as a comprehensive home exercise program upon discharge, if needed, ?to ensure carryover of functional gains achieved in the clinic. This treatment plan has been reviewed and agreement upon by the patient.
--- NOTE | 2024-12-24 11:27 | PTOPREEVAL ---
Assessment and note entered by Peter [facility] Evaluation Information Assessment Status Re-evaluation ICD-10 Condition Codes (PT) Cervicalgia M54.2,Radiculopathy, cervical M54.13, Dizziness and Giddiness R42,BPPV H81.12 Onset 11/06/24 Subjective Information Pt. reports that he was doing the Abi Maneuver over the weekend and developed severe neck pain. He describes pain on the right side of the neck and notices pain with turning the head. He states that he did the Maneuver too aggressively, which likely resulted in his pain. He states that his dizziness has been less, but is still using the Meclizine. He states that he is most concerned about his recent development of neck pain. He states that he would like to continue with treatment focusing on reducing his neck pain. Reported Pain Level Pain Score 6: Self Report Assessment PT Clinical Summary Pt. enters the clinic demonstrating no nystagmus, without noted dizziness on this date. He is limited due to developed cervical pain that currently limits c-spine ROM and results in slight functional decline. Recommended continued treatment initiating care for cervical pain, likely due to degenerative changes of the cervical spine. Pt. informed to hold off on at home Abi to avoid irritating the cervical spine further. Additional goals established on this date. Plan of Care Interventions Electrical Stimulation,Hot Pack/Cold Pack,Manual Therapy,Mechanical Traction,Neuro Re-education, Patient/Caregiver Education,Therapeutic Activities ,Therapeutic Exercise PT Services Indicated Yes Treatment Frequency and 2x/week x 8 visits Duration These treatments will address the objective and functional deficits as defined above. The patient will be advanced safely and appropriately in order for the patient to progress towards his/her prior level of function. Additional exercises will be introduced and as well as a comprehensive home exercise program upon discharge, if needed, ?to ensure carryover of functional gains achieved in the clinic. This treatment plan has been reviewed and agreement upon by the patient.
--- NOTE | 2025-01-16 15:19 | OPREHPOC ---
Outpatient Therapy Plan of Care This is a Multidisciplinary Plan of Care that may contain components documented by all disciplines (PT, OT, and ST.) PT Problem 1 PT Problem #1 Knowledge Deficit PT Goal 1 Goal / Goal Update patient will be independent with home shirley Target Visit 2 Progress Met PT Problem 2 PT Problem #2 Impaired Functional Mobility PT Goal 1 Goal / Goal Update no reported vertigo in the last week- not met no visible nystagmus with peter-hallpike testing - met Target Visit 4 Progress Partially Met PT Goal 2 Goal / Goal Update continue Target Visit 11 PT Problem 3 PT Problem #3 Impaired Range of Motion PT Goal 1 Goal / Goal Update Pt. will demonstrate 75 degrees of bilateral c- spine rotation AROM Target Visit 8 Progress Not Met PT Goal 2 Goal / Goal Update continue Target Visit 11 PT Problem 4 PT Problem #4 Impaired Functional Mobility PT Goal 1 Goal / Goal Update Pt. will demonstrate less than 10% limitation on the NDI indicating significant functional improvment. Target Visit 8 Progress Not Met PT Goal 2 Goal / Goal Update continue pt to report 5% or less on dizziness handicap inventory Target Visit 11
--- NOTE | 2025-01-16 15:19 | PTOPREEVAL ---
Assessment and note entered by JT File, PT Evaluation Information Assessment Status Re-evaluation ICD-10 Condition Codes (PT) Cervicalgia M54.2,Radiculopathy, cervical M54.13, Dizziness and Giddiness R42,BPPV H81.12 Onset 11/06/24 Subjective Information Pt reports that he still has some dizziness when he lays his head back, but he has no trouble sitting up. Pt reports that he has started swimming again, but has been avoiding back strokes as to not invoke the dizziness. Pt reports that the neck pain and stiffness is also getting better . Pt reports that he feels almost back to normal. Reported Pain Level Pain Score 1: Self Report Assessment PT Clinical Summary Mr. Nino finished his 8th skilled PT visit for cervical pain and vertigo. Pt reports that he feels he has made improvements. Objectively R cervical rotation has improved, his dizziness handicap inventory score decreased, and there is no nystagmus present with Stinnett-Hallpike maneuver. Pt has partially met some goals, but still is limited in ROM and has bouts of dizziness. Skilled PT is needed to continue working on deficits to achieve full prior level of function to improve quality of life. Plan of Care Interventions Electrical Stimulation,Hot Pack/Cold Pack,Manual Therapy,Mechanical Traction,Neuro Re-education, Patient/Caregiver Education,Therapeutic Activities ,Therapeutic Exercise PT Services Indicated Yes Treatment Frequency and 1 x a week for 3 visits Duration These treatments will address the objective and functional deficits as defined above. The patient will be advanced safely and appropriately in order for the patient to progress towards his/her prior level of function. Additional exercises will be introduced and as well as a comprehensive home exercise program upon discharge, if needed, ?to ensure carryover of functional gains achieved in the clinic. This treatment plan has been reviewed and agreement upon by the patient.
--- NOTE | 2025-02-06 11:36 | OPREHPOC ---
Outpatient Therapy Plan of Care This is a Multidisciplinary Plan of Care that may contain components documented by all disciplines (PT, OT, and ST.) PT Problem 1 PT Problem #1 Knowledge Deficit PT Goal 1 Goal / Goal Update patient will be independent with home shirley Target Visit 2 Progress Met PT Problem 2 PT Problem #2 Impaired Functional Mobility PT Goal 1 Goal / Goal Update no reported vertigo in the last week- not met no visible nystagmus with peter-hallpike testing - met Target Visit 4 Progress Partially Met PT Goal 2 Goal / Goal Update . Target Visit 11 PT Problem 3 PT Problem #3 Impaired Range of Motion PT Goal 1 Goal / Goal Update Pt. will demonstrate 75 degrees of bilateral c- spine rotation AROM Target Visit 8 Progress Not Met PT Goal 2 Goal / Goal Update . Target Visit 11 PT Problem 4 PT Problem #4 Impaired Functional Mobility PT Goal 1 Goal / Goal Update Pt. will demonstrate less than 10% limitation on the NDI indicating significant functional improvment. Target Visit 8 Progress Met PT Goal 2 Goal / Goal Update continue pt to report 5% or less on dizziness handicap inventory Target Visit 11 Progress Met
--- NOTE | 2025-02-06 11:36 | PTOPDC ---
Assessment and note entered by JT File, PT Evaluation Information Assessment Status Discharge ICD-10 Condition Codes (PT) Cervicalgia M54.2,Radiculopathy, cervical M54.13, Dizziness and Giddiness R42,BPPV H81.12 Onset 11/06/24 Subjective Information patient reports he feels really good today. he reports he has no pain in the neck today. he reports he gets a very brief slight amount of spinning when laying down but it doesnt last more than a few seconds. Reported Pain Level Pain Score 0: Self Report Assessment PT Clinical Summary mr. jhaveri presents to skilled PT services for his 11th skilled PT visit. he presents with 0% reported deficits on the DHI and only 2% reported deficits on the NDI. he has met over 65% of his goals for skilled PT as of this date. he will DC skilled PT today, and continue with independent HEP at home. Plan of Care PT Services Indicated Yes
== END 2025-02-06 14:52 | disposition home or self-care (01) ==
LOC: CHSPT 14:53
PROVIDERS: PCP Internal Medicine; Visit Provider Internal Medicine
DX: H81.12 Benign paroxysmal vertigo, left ear (principal)
CPT/HCPCS: 95992; 97014; 97110; 97112; 97140; 97161; 97530; G0283

== ENCOUNTER 2025-04-29 17:58 | Emergency (ER) | payer MEDICARE, SELFPAY ==
--- NOTE | ~2025-04-29 | CT_ITS ---
CT HEAD NON-CONTRAST Clinical History: fall off of a ladder, denies hitting head Comparison: None Technique: Unenhanced axial images skull base to vertex Coronal, sagittal reformats CT images acquired with automatic exposure control for dose reduction DLP: 605 mGy-cm Findings: Sulci, ventricles: Unremarkable. No intracerebral hemorrhage. No evidence acute territorial infarct. No mass effect, midline shift. Bony calvarium intact. Visualized paranasal sinuses: Clear. Mastoid air cells: Clear. IMPRESSION: 1. No acute intracranial findings. Reviewed, dictated and finalized at location R.
--- NOTE | ~2025-04-29 | CT_ITS ---
EXAMINATION: CT lumbar spine wo con DATE: 04/29/2025 18:24 INDICATION: Status post fall from ladder. TECHNIQUE: Computed tomography (CT) of the lumbar spine was performed without intravenous contrast. The dose-length product was 1390.48 mGy-cm. COMPARISON: MRI of lumbar spine dated 08/19/[address] abdomen dated 09/24/2023 FINDINGS: There is disc narrowing at L5-S1 with vacuum phenomena. There is degenerative spondylolisthesis at L4-5 secondary to facet hypertrophy. There are endplate degenerative changes at L5-S1. No acute fracture or traumatic malalignment. Mild superior endplate compression deformity at T11, chronic. There is multilevel facet hypertrophy. Lung apices are normal. No paraspinal soft tissue abnormality. There is left neural foraminal narrowing at L4-5 secondary to endplate hypertrophy and facet hypertrophy. There is mild bilateral neural foraminal narrowing at L5-S1 secondary to facet and endplate hypertrophy. IMPRESSION: 1. No acute abnormality of the lumbar spine. 2: Moderate lumbar spondylosis. Reviewed, dictated and finalized at location O.
[2025-04-29 17:59] VITALS: BP 148/82; PULSE 61; RESP 17; TEMP 36.9; O2SAT 94
--- OUTSIDE RECORDS SUMMARY | 2025-04-29 18:00 | XMS_ITS | Clinical Summary ---
Author Organization [facility] Address [address] [place] [address] Care Team Providers Care Fire Officer Name Role Phone Unavailable Primary Care Provider Unavailabl e Source Comments [facility],non-owned Affiliates and Associated Physician Practices is amultiple site organization consisting of ambulatory clinics and hospital sitesin [place], [place], [place] and [place]. This disclosure is being madepursuant to the Care Everywhere program and may not contain all information available regarding this patient. 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
--- NOTE | 2025-04-29 18:49 | ED.FALL ---
HPI - Fall General Chief Complaint: Fall Stated Complaint: fell off ladder Time Seen by Provider: 04/29/25 18:02 Source: patient and family Mode of arrival: ambulatory Limitations: no limitations History of Present Illness HPI Narrative: 72 year with hypertension, hyperlipidemia here with the complaints low pain. Patient states that fell off the ladder. Missed the last step landed on his lower back. Denies head and neck injuries. No bladder or bowel incontinence. Is ambulatory., Related Data Home Medications ?Medication ?Instructions ?Recorded ?Confirmed ?Last Taken ?Type aspirin 81 mg tablet,delayed 81 mg PO DAILY 07/20/19 04/29/25 05/12/21 History release cholecalciferol (vitamin D3) 50 2,000 unit PO DAILY 07/20/19 04/29/25 07/19/19 History mcg (2,000 unit) tablet (Vitamin D3) duloxetine 20 mg capsule,delayed 20 mg PO QAM 07/20/19 04/29/25 05/13/21 06:00 History release (Cymbalta) ipratropium 0.5 mg-albuterol 3 mg 3 ml inhalation PRN PRN SOB 07/20/19 04/29/25 Unknown History (2.5 mg base)/3 mL nebulization soln pravastatin 10 mg tablet 10 mg PO QPM 07/20/19 04/29/25 Unknown History spironolactone 25 mg tablet 25 mg PO DAILY 07/20/19 04/29/25 07/19/19 History trazodone 150 mg tablet 75 mg PO HS 07/20/19 04/29/25 07/19/19 History albuterol sulfate 90 mcg/actuation 2 puff inhalation PRN PRN SOB 05/01/21 04/29/25 Unknown History aerosol inhaler pantoprazole 40 mg tablet,delayed 40 mg PO QPM 05/01/21 04/29/25 Unknown History release famotidine 40 mg tablet (Pepcid) 40 mg PO DAILY 05/04/21 04/29/25 Unknown History verapamil 120 mg tablet,extended mg PO 04/29/25 Unknown History release Allergies Allergy/AdvReac Type Severity Reaction Status Date / Time No Known Allergies Allergy Verified 04/29/25 18:06 Review of Systems Review of Systems: All systems reviewed & are unremarkable except as noted in HPI and below Constitutional: Constitutional: Reports no additional constitutional complaints Eyes: Eyes: Reports no additional eye complaints ENT: Reports system reviewed and no additional complaints, except as documented Cardiovascular: Cardiovascular: Reports no additional cardiovascular complaints Respiratory: Respiratory: Reports no additional respiratory complaints Gastrointestinal: Gastrointestinal: Reports no additional gastrointestinal complaints Musculoskeletal: Musculoskeletal: Reports as per HPI [facility] Past Medical History Medical History Bladder cancer Bilateral nephrolithiasis UTI (urinary tract infection) Strain of lumbar region High cholesterol GERD (gastroesophageal reflux disease) Hx of malignant neoplasm of lung Asthma BPH (benign prostatic hyperplasia) Depression HTN (hypertension) Surgical History Surgical History Status post cystoscopy H/O hernia repair lap RIH repair w/ mesh, davinci assisted 05/13/21 History of lobectomy of lung Left lower 2007 Family History Family History Father Brain cancer Mother Breast cancer Uterine cancer Cerebrovascular accident Sibling Parkinson disease Social History Social History Smoking packs per day: 2 Smoking cigarettes per day: 40.0 Years smoked: 19 Smoking pack-years: 38.00 Smoking status: Former smoker Tobacco type: cigarettes Smoking end date: 03/08/93 Alcohol intake: current Substance use: never Living arrangements: other Occupation/Education: occupation Gender identity (if verbalized by the patient): Male Sexual Orientation (if Verbalized by the Patient): Straight or Heterosexual Spiritual care concerns: No Exam Narrative: GENERAL: Well-appearing, well-nourished, and in no acute distress. HEAD: Normocephalic, atraumatic. EYES: PERRLA and EOMI. ENT: Nares clear, no rhinorrhea or epistaxis. Mucous membranes moist. NECK: Supple. CHEST: Clear to auscultation. No respiratory distress. HEART: Regular rate and rhythm. No murmur heard. Normal peripheral pulses. ABDOMEN: Soft, nontender, nondistended, normal active bowel sounds. EXTREMITIES: Normal range of motion. No edema. SKIN: Warm, dry, no rash. NEURO: No focal deficits. Alert and oriented x3. PSYCH: Normal mood and affect. Course Course Emergency Course: Notified patient his CT findings. Advised him to take pain. iice pack to the area Vital Signs Vital signs: Vital Signs Temperature 36.9 C 04/29/25 17:59 Pulse Rate 61 04/29/25 17:59 Respiratory Rate 17 04/29/25 17:59 Blood Pressure 148/82 H 04/29/25 17:59 Pulse Oximetry 94 04/29/25 17:59 Oxygen Delivery Room Air 04/29/25 17:59 Temperature 36.9 C 04/29/25 17:59 Pulse Rate 61 04/29/25 17:59 Respiratory Rate 17 04/29/25 17:59 Blood Pressure 148/82 H 04/29/25 17:59 Pulse Oximetry 94 04/29/25 17:59 Oxygen Delivery Room Air 04/29/25 17:59 MDM - Fall Differential Diagnosis Differential diagnosis: Likely compression fracture and concussion without loss of consciousness Medical Records Attestation: I reviewed the patient's medical records. Lab Data Attestation: I reviewed the patient's lab results. Imaging Data Radiologist's impression: ITS Impressions Head CT 04/29/25 18:31 IMPRESSION: 1. No acute intracranial findings. Lumbar Spine CT 04/29/25 18:33 IMPRESSION: 1. No acute abnormality of the lumbar spine. 2: Moderate lumbar spondylosis. Discharge Plan Discharge Clinical Impression: Contusion of lumbar spinal cord Patient Disposition: Home Condition: Stable Instructions: Contusion in Adults (ED) Additional Instructions: continue home medication, fall precaution take medication as prescribed Patient Language: Latvian Prescriptions: New naproxen sodium [Anaprox DS] 550 mg tablet 550 mg PO Q12H PRN (Reason: pain) Qty: 14 0RF No Action cyclobenzaprine 10 mg tablet 10 mg PO TID Qty: 20 0RF verapamil 120 mg tablet extended release PO ipratropium-albuterol 0.5 mg-3 mg(2.5 mg base)/3 mL solution for nebulization 3 ml INHALATION PRN PRN (Reason: SOB) aspirin 81 mg Tablet,Delayed Release (Dr/Ec) 81 mg PO DAILY spironolactone 25 mg Tablet 25 mg PO DAILY pravastatin 10 mg tablet 10 mg PO QPM trazodone 150 mg tablet 75 mg PO HS duloxetine [Cymbalta] 20 mg Capsule,Delayed Release(Dr/Ec) 20 mg PO QAM cholecalciferol (vitamin D3) [Vitamin D3] 2,000 unit Tablet 2,000 unit PO DAILY acetaminophen [Tylenol] 325 mg capsule 650 mg PO Q8H PRN (Reason: pain) Qty: 20 0RF pantoprazole 40 mg tablet,delayed release (DR/EC) 40 mg PO QPM albuterol sulfate 90 mcg/actuation HFA aerosol inhaler 2 puff INHALATION PRN PRN (Reason: SOB) famotidine [Pepcid] 40 mg Tablet 40 mg PO DAILY ibuprofen 800 mg tablet 800 mg PO Q8H PRN (Reason: pain) Qty: 12 0RF Follow-up/Referrals: Nj Harrington MD [Primary Care Provider, Internal Medicine] Time of Disposition: 18:54
[2025-04-29 19:04] VITALS: BP 131/87; PULSE 60; RESP 16; TEMP 36.7; O2SAT 96
== END 2025-04-29 19:08 | disposition home or self-care (01) ==
PROVIDERS: Emergency Provider Family Medicine; PCP Internal Medicine
DX: S30.0XXA Contusion of lower back and pelvis, initial encounter (principal); I10 Essential (primary) hypertension; E78.5 Hyperlipidemia, unspecified; Z85.51 Personal history of malignant neoplasm of bladder; Z87.891 Personal history of nicotine dependence; Z85.118 Personal history of other malignant neoplasm of bronchus and lung; W11.XXXA Fall on and from ladder, initial encounter
CPT/HCPCS: 70450; 72131; 99284